=== PATIENT | male | born 1975 | race Caucasian/White ===

== ENCOUNTER → 2018-01-16 | Outpatient (CLI) | payer OTHER ==
[2018-01-16 09:35] LABS: ABSOLUTE BASOPHILS # (AUTO) 0.1 10^3/uL (0.0-0.2); ABSOLUTE EOSINOPHILS # (AUTO) 0.4 10^3/uL (0.0-0.6); ABSOLUTE LYMPHOCYTES (AUTO) 1.8 10^3/uL (0.5-4.7); ABSOLUTE MONOCYTES (AUTO) 0.4 10^3/uL (0.1-1.4); ABSOLUTE NEUT (AUTO) 2.2 10^3/uL (1.7-8.2); BASOPHILS % (AUTO) 2.5 % (0-2); EOSINOPHILS % (AUTO) 8.3 % (0-6); HEMATOCRIT 36.3 % (37.9-51.0); HEMOGLOBIN 11.8 g/dL (13.5-17.0); LYMPHOCYTES % (AUTO) 35.7 % (13-45); MEAN CORPUSCULAR HGB CONC 32.6 g/dL (32.0-36.0); MEAN CORPUSCULAR VOLUME 95 fl (80-97); MONOCYTES % (AUTO) 8.9 % (3-13); PLATELET COUNT 270 10^3/uL (150-450); RED BLOOD COUNT 3.82 10^6/uL (4.35-5.55); RED CELL DISTRIBUTION WIDTH 14.7 % (11.5-14.0); SEGMENTED NEUTROPHILS % (AUTO) 44.6 % (42-78); TOTAL CELLS COUNTED % (AUTO) 100 %; WHITE BLOOD COUNT 4.9 10^3/uL (4.0-10.5)
[2018-01-16 10:01] LABS: ALANINE AMINOTRANSFERASE 30 U/L (21-72); ALBUMIN 3.5 g/dL (3.5-5.0); ALKALINE PHOSPHATASE 114 U/L (38-126); ANION GAP 11 (5-19); ASPARTATE AMINO TRANSFERASE 50 U/L (17-59); BILIRUBIN,DIRECT 0.3 mg/dL (0.0-0.4); BILIRUBIN,TOTAL 0.4 mg/dL (0.2-1.3); BLOOD UREA NITROGEN 6 mg/dL (7-20); CALCIUM 9.4 mg/dL (8.4-10.2); CARBON DIOXIDE 28 mmol/L (22-30); CHLORIDE 104 mmol/L (98-107); GLUCOSE 125 mg/dL (75-110); POTASSIUM 4.2 mmol/L (3.6-5.0); SODIUM 143.1 mmol/L (137-145); TOTAL PROTEIN 7.1 g/dL (6.3-8.2); TRIGLYCERIDES 118 mg/dL (<150)
[2018-01-16 10:12] LABS: DIRECT LDL 104 mg/dL (<100)
== END ==
LOC: OD 08:03
DX: E11.8 Type 2 diabetes mellitus with unspecified complications (principal)
CPT/HCPCS: 36415; 80053; 80061; 83036; 83735; 84443; 85025

== ENCOUNTER → 2018-09-01 | Emergency (ER) | payer BC, OTHER ==
[~2018-09-01] MED LIST: MORPHINE SULFATE 10 MG/ML INJ IV ONE; NORMAL SALINE 1000 ML 1,000 ML IV ONE; ONDANSETRON HCL INJ/PF 4 MG/2 ML SDV IV ONE; POTASSIUM CHLORIDE 10 MEQ CAPSULE.ER PO ONE
[2018-09-01 08:13] LABS: ABSOLUTE BASOPHILS # (AUTO) 0.1 10^3/uL (0.0-0.2); ABSOLUTE EOSINOPHILS # (AUTO) 0.3 10^3/uL (0.0-0.6); ABSOLUTE LYMPHOCYTES (AUTO) 1.8 10^3/uL (0.5-4.7); ABSOLUTE MONOCYTES (AUTO) 0.9 10^3/uL (0.1-1.4); ABSOLUTE NEUT (AUTO) 6.5 10^3/uL (1.7-8.2); BASOPHILS % (AUTO) 0.9 % (0-2); EOSINOPHILS % (AUTO) 3.1 % (0-6); HEMATOCRIT 43.3 % (37.9-51.0); HEMOGLOBIN 14.6 g/dL (13.5-17.0); LYMPHOCYTES % (AUTO) 18.8 % (13-45); MEAN CORPUSCULAR HEMOGLOBIN 30.8 pg (27.0-33.4); MEAN CORPUSCULAR HGB CONC 33.8 g/dL (32.0-36.0); MEAN CORPUSCULAR VOLUME 91 fl (80-97); MONOCYTES % (AUTO) 9.7 % (3-13); PLATELET COUNT 303 10^3/uL (150-450); RED BLOOD COUNT 4.76 10^6/uL (4.35-5.55); RED CELL DISTRIBUTION WIDTH 13.4 % (11.5-14.0); SEGMENTED NEUTROPHILS % (AUTO) 67.5 % (42-78); TOTAL CELLS COUNTED % (AUTO) 100 %; WHITE BLOOD COUNT 9.6 10^3/uL (4.0-10.5)
[2018-09-01 08:26] LABS: APPEARANCE,URINE SLIGHTLY-CLOUDY; BILIRUBIN,URINE NEGATIVE (NEGATIVE); COLOR,URINE DARK YELLOW; GLUCOSE, URINE NEGATIVE (NEGATIVE); KETONES,URINE NEGATIVE (NEGATIVE); LEUKOCYTE ESTERASE,URINE NEGATIVE (NEGATIVE); NITRITE,URINE NEGATIVE (NEGATIVE); PROTEIN,URINE 30 mg/dL (NEGATIVE); URINE SPECIFIC GRAVITY 1.019
[2018-09-01 08:38] LABS: ALANINE AMINOTRANSFERASE 22 U/L (21-72); ALKALINE PHOSPHATASE 120 U/L (38-126); ANION GAP 9 (5-19); ASPARTATE AMINO TRANSFERASE 37 U/L (17-59); BILIRUBIN,DIRECT 0.3 mg/dL (0.0-0.4); BILIRUBIN,TOTAL 1.4 mg/dL (0.2-1.3); BLOOD UREA NITROGEN 9 mg/dL (7-20); CALCIUM 8.6 mg/dL (8.4-10.2); CARBON DIOXIDE 35 mmol/L (22-30); CHLORIDE 81 mmol/L (98-107); GLUCOSE 130 mg/dL (75-110); LIPASE 1335.7 U/L (23-300); POTASSIUM 3.1 mmol/L (3.6-5.0); SODIUM 125.3 mmol/L (137-145); TOTAL PROTEIN 6.4 g/dL (6.3-8.2)
[2018-09-01 09:51] LABS: INTERNATIONAL RATION (INR) 1.08
--- NOTE | 2018-09-01 12:24 | RADIOLOGY REPORT (SQ) ---
EXAM DESCRIPTION: CT ABD/PELVIS WITH IV ORAL COMPLETED DATE/TIME: 09/01/2018 12:10 pm REASON FOR STUDY: abd distension, elevated lipase COMPARISON: None. TECHNIQUE: CT scan of the abdomen and pelvis performed with intravenous and oral contrast using lissa ke scanning technique with dynamic intravenous contrast injection. Images reviewed with lung, soft t issue, and bone windows. Reconstructed coronal and sagittal MPR images reviewed. Delayed images for e valuation of the urinary system also acquired. All images stored on PACS. All CT scanners at this facility use dose modulation, iterative reconstruction, and/or weight based d osing when appropriate to reduce radiation dose to as low as reasonably achievable (ALARA). [facility]: Dose Right [facility]: CareDose [facility]: Dose Right [facility]: Teradose 4D [facility]: [employer] CONTRAST TYPE AND DOSE: contrast/concentration: Isovue 350.00 mg/ml; Total Contrast Delivered: 95.0 ml; Total Saline Delivered: 55.0 ml RENAL FUNCTION: BUN 9 creatinine 0.91. RADIATION DOSE: CT Rad equipment meets quality standard of care and radiation dose reduction techniq ues were employed. CTDIvol: 10.6 - 14.7 mGy. DLP: 1546 mGy-cm.. LIMITATIONS: None. FINDINGS: LOWER CHEST: No significant findings. No nodules or infiltrates. LIVER: Normal size. General decreased attenuation. Possible subtle nodularity of the contour. No m asses. No dilated ducts. SPLEEN: Normal size. No focal lesions. PANCREAS: No masses. No significant calcifications. There several cystic lesions. Cyst in the tail of the pancreas measures 3.0 x 3.9 cm. Cyst in the body of the pancreas measures 2.4 x 2.8 cm. Cyst in the head of the pancreas measures 3.5 x 3.5 cm. Pancreatic duct not dilated. GALLBLADDER: No identified stones by CT criteria. No inflammatory changes to suggest cholecystitis. ADRENAL GLANDS: No significant masses or asymmetry. RIGHT KIDNEY AND URETER: No solid masses. No significant calcification. No hydronephrosis or hydroure ter. LEFT KIDNEY AND URETER: No solid masses. No significant calcification. No hydronephrosis or hydrouret er. AORTA AND VESSELS: No aneurysm. No dissection. Renal arteries, SMA, celiac without stenosis. RETROPERITONEUM: No retroperitoneal adenopathy, hemorrhage or masses. BOWEL AND PERITONEAL CAVITY: No obstruction. No visualized masses. Large amount of free fluid. No i nflammatory changes or thickening of bowel wall. APPENDIX: Normal. PELVIS: No significant masses. Normal bladder. No free fluid. ABDOMINAL WALL: No masses. No hernias. BONES: No significant or acute findings. OTHER: No other significant finding. IMPRESSION: 1. LARGE AMOUNT OF ASCITES. 2. SEVERAL PANCREATIC CYSTS VERSUS PSEUDOCYSTS. 3. FATTY INFILTRATION OF THE LIVER. POSSIBLE SUBTLE NODULARITY OF THE CONTOUR WHICH COULD INDICATE C IRRHOSIS. NO FOCAL HEPATIC LESIONS. 4. NO OTHER SIGNIFICANT OR ACUTE FINDINGS IN THE ABDOMEN OR PELVIS. TECHNICAL DOCUMENTATION: JOB ID: [id number] Quality ID # [id number]: Final reports with documentation of one or more dose reduction techniques (e.g., Au tomated exposure control, adjustment of the mA and/or kV according to patient size, use of iterative reconstruction technique) 2010 [employer]- All Rights Reserved Reading location - IP/workstation name: [email or web address]
--- NOTE | 2018-09-01 13:26 | ER Document Report ---
ED General - General Chief Complaint: Abnormal Lab Results Stated Complaint: STOMACH PROBLEMS Time Seen by Provider: 09/01/18 09:11 Primary Care Provider: HANH MORENO PA-C [Primary Care Provider] - Follow up as needed TRAVEL OUTSIDE OF THE [place] IN LAST 30 DAYS: No - HPI Notes: 42-year-old male to the emergency department with complaints of upper abdominal pain and abdominal bloating and enlargement for the past 2 weeks. [facility] and had labs done. He was called today and told that he had pancreatitis and to proceed to the emergency department. States that he does have a history of excessive alcohol abuse but that he has s ignificantly decreased his habit. States that prior to last fall he was drinking 4-5 beers every single day. States now he only drinks occasionally on the weekends. Does admit that he was drinking yesterday. States that he has not had any appetite and that it hurts when he tries to eat or drink anything. He denies any fevers, chills, chest pain, shortness of breath, headache, decrease in urination, rectal bleeding, hematemesis, yellowing of skin. - Related Data Allergies/Adverse Reactions: No Known Allergies Allergy (Verified 09/01/18 06:02) Past Medical History - General Information source: Patient, Relative - Social History Smoking Status: Current Every Day Smoker Frequency of alcohol use: Social Drug Abuse: None Family History: Reviewed & Not Pertinent Patient has suicidal ideation: No Patient has homicidal ideation: No Neurological Medical History: Reports: Hx Seizures Renal/ Medical History: Denies: Hx Peritoneal Dialysis - Immunizations Hx Diphtheria, Pertussis, Tetanus Vaccination: Yes Physical Exam - Vital signs Vitals: Temp Pulse Resp BP Pulse Ox 97.5 F 93 16 133/95 H 98 09/01/18 06:09 09/01/18 06:09 09/01/18 06:09 09/01/18 06:09 09/01/18 06:09 Interpretation: Normal - General General appearance: Other - Chronically ill-appearing In distress: None - HEENT Head: Normocephalic, Atraumatic Eyes: Normal Pupils: PERRL - Respiratory Respiratory status: No respiratory distress Chest status: Nontender Breath sounds: Normal Chest palpation: Normal - Cardiovascular Rhythm: Regular Heart sounds: Normal auscultation Murmur: No - Abdominal Distension: Distended, Other - Distended abdomen most consistent with ascites. No: Tympanitic Bowel sounds: Normal Tenderness: Tender - Tenderness to palpation over the epigastrium, no rebound, no guarding, no rigidity. No: McBurney's point, Pino's sign, Guarding, Rebound - Back Back: Normal, Nontender - Extremities General upper extremity: Normal inspection, Nontender, Normal color, Normal ROM, Normal temperature General lower extremity: Normal inspection, Nontender, Normal color, Normal ROM, Normal temperature, Normal weight bearing. No: Desmond's sign - Neurological Neuro grossly intact: Yes Cognition: Normal Orientation: AAOx4 [place] Coma Scale Eye Opening: Spontaneous Sherice Coma Scale Verbal: Oriented [place] Coma Scale Motor: Obeys Commands [place] Coma Scale Total: 15 Speech: Normal Motor strength normal: LUE, RUE, LLE, RLE Sensory: Normal - Psychological Associated symptoms: Normal affect, Normal mood - Skin Skin Temperature: Warm Skin Moisture: Dry Skin Color: Normal. negative: Jaundiced Course - Vital Signs Vital signs: Temp Pulse Resp BP Pulse Ox 97.3 F 81 20 111/79 100 09/01/18 12:16 09/01/18 12:16 09/01/18 12:16 09/01/18 12:16 09/01/18 12:16 - Laboratory Result Diagrams: 09/01/18 07:57 09/01/18 07:57 Laboratory results interpreted by me: 09/01/18 09/01/18 09/01/18 07:57 07:57 07:57 Sodium 125.3 L Potassium 3.1 L Chloride 81 L Carbon Dioxide 35 H Glucose 130 H Total Bilirubin 1.4 H Albumin 3.0 L Amylase 531 H Lipase 1335.7 H Urine Protein 30 H Urine Urobilinogen 2.0 H - Transfer of Care Notes: 09/01/[address] reading. Given his pancreatitis, likely pseudocysts, hyponatremia, ascites, Will plan for admission. Discussed this with ER Attending, Dr. Barber. He Agrees with the plan. Discussed patient with Dr. Nagel, hospitalist. There is no GI coverage Dr. Lees feels like patient does not have the appropriate resources for his condition here and suggest transfer for higher level of care. Discussed this with patient and he is amenable to being transferred to [facility] for ad mission. Discussed patient with hospitalist at [facility] Dr. Evelio Esposito. He agrees with the plan for admission and transfer. He is aware that the reason for request for transfer is because there is no GI coverage currently. He is aware of CT finding, lipase level, hyponatremia, hypokalemia, hypochloremia. He is aware of patient's physical exam. He accepts the patient. Impression: pancreatitis, ascites, hyponatremia, hypokalemia, hypochloremia. Plan for transfer to [facility] for high level of care since GI is not currently available here. Discharge - Discharge Clinical Impression: Pancreatitis, Ascites, Alcohol abuse, Hyponatremia, Hypochloremia Disposition: [facility] Referrals: HANH MORENO PA-C [Primary Care Provider] - Follow up as needed
[2018-09-01 18:28] VITALS: BP 116/86
== END | disposition short-term general hospital (02) ==
LOC: ER 05:59
DX: K85.90 Acute pancreatitis without necrosis or infection, unspecified (principal); R18.8 Other ascites; E87.8 Other disorders of electrolyte and fluid balance, not elsewhere classified; E87.1 Hypo-osmolality and hyponatremia; R10.10 Upper abdominal pain, unspecified; F17.200 Nicotine dependence, unspecified, uncomplicated
CPT/HCPCS: 96376; 99285; 96361; 96374; 96375; 36415; 80307; 82150; 83690; 85025; 85610; 85730; 80053; 81001; 74177; J2270; J2405; J7030

== ENCOUNTER → 2019-09-11 | Outpatient (CLI) | payer BC, OTHER ==
--- NOTE | 2019-09-11 15:44 | RADIOLOGY REPORT (SQ) ---
EXAM DESCRIPTION: CT ABD/PELVIS WITH IV ORAL IMAGES COMPLETED DATE/TIME: 09/11/2019 1:18 pm REASON FOR STUDY: GENERALIZED ABD PAIN (R10.84) R10.84 GENERALIZED ABDOMINAL PAIN COMPARISON: CT ABDOMEN PELVIS 09/01/2018 TECHNIQUE: CT scan of the abdomen and pelvis performed using helical scanning technique with dynamic intravenous contrast injection. Patient drank oral contrast. Images reviewed with lung, soft tissue , and bone windows. Reconstructed coronal and sagittal MPR images reviewed. Delayed images for evalua tion of the urinary system also acquired. All images stored on PACS. All CT scanners at this facility use dose modulation, iterative reconstruction, and/or weight based d osing when appropriate to reduce radiation dose to as low as reasonably achievable (ALARA). [facility]: Dose Right [facility]: CareDose [facility]: Dose Right [facility]: Teradose 4D [facility]: [employer] CONTRAST TYPE AND DOSE: contrast/concentration: Isovue 350.00 mmol/ml; Total Contrast Delivered: 88. 0 ml; Total Saline Delivered: 70.0 ml RENAL FUNCTION: Creatinine 1.1 RADIATION DOSE: CT Rad equipment meets quality standard of care and radiation dose reduction techniq ues were employed. CTDIvol: 5.3 - 5.3 mGy. DLP: 573 mGy-cm.. LIMITATIONS: None. FINDINGS: LOWER CHEST: No significant findings. No nodules or infiltrates. LIVER: Normal size. No masses. No dilated ducts. SPLEEN: Normal size. No focal lesions. PANCREAS: Pancreatic head is enlarged and indistinct, with inflammation in the surrounding retroperit rodriguez fat. There is blurring of fat planes between the pancreatic head and duodenum. There are multiple enlarged and nonenlarged lymph nodes in the peripancreatic soft tissues. A 1.6 x 1 cm portacaval space lymph node is present on axial image 24. Multiple other smaller by the 6 mm sh ort axis peripancreatic lymph nodes are seen around the pancreatic head. Pancreatic body and tail are unremarkable. No dilute creation of the pancreatic duct. These above findings could either be due to pancreatitis or tumor. Please note that the 3 cm cyst at the pancreatic head and 3 cm cyst in the pancreatic neck seen on are no longer present. GALLBLADDER: No identified stones by CT criteria. No inflammatory changes to suggest cholecystitis. ADRENAL GLANDS: No significant masses or asymmetry. RIGHT KIDNEY AND URETER: No solid masses. No significant calcifications. No hydronephrosis or hyd roureter. LEFT KIDNEY AND URETER: No solid masses. No significant calcifications. No hydronephrosis or hydr oureter. AORTA AND VESSELS: No aneurysm. No dissection. Renal arteries, SMA, celiac without stenosis. RETROPERITONEUM: No retroperitoneal adenopathy, hemorrhage or masses. BOWEL AND PERITONEAL CAVITY: Patient drank oral contrast. No masses or inflammatory changes. No levar e fluid or peritoneal masses. APPENDIX: Normal. PELVIS: No mass. No free fluid. Normal bladder. ABDOMINAL WALL: No masses. No hernias. BONES: No significant or acute findings. OTHER: No other significant finding. IMPRESSION: Enlarged pancreatic head with surrounding adenopathy. Blurring of fat planes between th e pancreas and duodenum. Findings could represent acute primary pancreatitis, secondary pancreatitis from adjacent duodenum ulcer, or primary pancreatic tumor. TECHNICAL DOCUMENTATION: JOB ID: [id number] Quality ID # [id number]: Final reports with documentation of one or more dose reduction techniques (e.g., Au tomated exposure control, adjustment of the mA and/or kV according to patient size, use of iterative reconstruction technique) 2010 [employer]- All Rights Reserved Reading location - IP/workstation name: [email or web address]
== END ==
LOC: RAD 12:35
PROVIDERS: ATTEND Internal Medicine Gastroenterology
DX: R10.84 Generalized abdominal pain (principal); K86.2 Cyst of pancreas
CPT/HCPCS: 74177; 82565

== ENCOUNTER 2019-10-12 07:00 | Day surgery (SDC) | payer OTHER ==
[2019-10-12] MEDS ORDERED: PROPOFOL INJ 200 MG/20 ML VIAL IV ONE (07:07)
--- NOTE | 2019-10-12 08:02 | Operative Report ---
Operative Report DATE OF SURGERY: 10/12/19 Operative Report: The risks benefits and alternatives of the procedure explained to the patient in detail and informed consent is obtained.A GIF Olympus video scope was inserted into the patient's mouth and hypopharynx, the esophagus is identified intubated and insufflated, the scope was then advanced through the esophagus stomach and duodenum, retroflexion maneuver is done, the esophagus stomach and first and second portions of the duodenum examined PREOPERATIVE DIAGNOSIS: Abnormal CT scan, epigastric pain POSTOPERATIVE DIAGNOSIS: Nodular gastritis status post biopsy. Hiatal hernia. Ampulla is patent and draining bile OPERATION: EGD with biopsy SURGEON: MADHU ANNA ANESTHESIA: LMAC TISSUE REMOVED OR ALTERED: As noted above COMPLICATIONS: None. ESTIMATED BLOOD LOSS: None. INTRAOPERATIVE FINDINGS: As noted above PROCEDURE: Patient tolerated the procedure well. No immediate postprocedure complications are noted. Patient is discharged in good condition. Discharge date 10/12/2019. Discharge diet: Regular. Discharge activity: Regular. 2 to 3-week follow-up to discuss findings. Patient is instructed to call the office or proceed to the emergency room should there be any further problems or questions. Wait on the pathology.
[2019-10-12 08:45] VITALS: BP 129/92
== END 2019-10-12 08:33 | disposition home or self-care (01) ==
LOC: END 07:00
PROVIDERS: ATTEND Internal Medicine Gastroenterology
DX: K44.9 Diaphragmatic hernia without obstruction or gangrene (principal); K29.50 Unspecified chronic gastritis without bleeding; K92.89 Other specified diseases of the digestive system; Z79.899 Other long term (current) drug therapy; F17.210 Nicotine dependence, cigarettes, uncomplicated; I10 Essential (primary) hypertension; Z03.818 Encounter for observation for suspected exposure to other biological agents ruled out
CPT/HCPCS: 43239; 82962; 87635; 88305 ×2; 00731; J2704; C9803; 731

== ENCOUNTER 2019-10-15 01:45 | Observation (INO) | payer OTHER ==
[2019-10-15] MEDS ORDERED: NORMAL SALINE 500 ML IV ONE (02:08)
[2019-10-15] MEDS ORDERED: ONDANSETRON HCL INJ/PF 4 MG/2 ML SDV IV ONE (02:25)
--- NOTE | 2019-10-15 02:28 | ER Document Report ---
ED GI/ - General Chief Complaint: Nausea/Vomiting/Diarrhea Stated Complaint: NAUSEA/VOMITTING/DIARRHEA Time Seen by Provider: 10/15/19 02:06 Notes: Patient is a 43-year-old male that comes emergency department for chief complaint of mid upper abdominal pain along with vomiting and diarrhea. Patient states he had an endoscopy on Tuesday, yesterday (Tuesday) he started having discomfort, today he had about 10+ episodes of diarrhea and multiple episodes of vomiting with significantly worsening pain. He states that he was trying to get to sleep and he did drink 1 beer to do so but this did not help. He denies drinking heavily recently although he states he used to drink more. He denies hematemesis, hematochezia, fever, cough, chest pain, flank pain. Patient states that he had a procedure at [facility] recently where he had "stents put in to help me drain my stomach", he states these were taken out, then he followed up with gastroenterology. He has a history of insulin dependent type II diabetes, hypertension, GERD. He smokes. He denies recreational drugs. TRAVEL OUTSIDE OF THE [place] IN LAST 30 DAYS: No - Related Data Allergies/Adverse Reactions: No Known Allergies Allergy (Verified 10/12/19 07:18) Home Medications: insulin glargine, lisinopril, magnesium oxide, omeprazole, spironolactone Past Medical History - General Information source: Patient - Social History Smoking Status: Current Every Day Smoker Frequency of alcohol use: Social Drug Abuse: None Lives with: Family Family History: Reviewed & Not Pertinent Patient has homicidal ideation: No - Past Medical History Cardiac Medical History: Reports: Hx Hypertension Denies: Hx Coronary Artery Disease, Hx Heart Attack Pulmonary Medical History: Denies: Hx Asthma, Hx Bronchitis, Hx COPD, Hx Pneumonia Neurological Medical History: Denies: Hx Cerebrovascular Accident, Hx Seizures Endocrine Medical History: Reports: Hx Diabetes Mellitus Type 1 Renal/ Medical History: Denies: Hx Peritoneal Dialysis Musculoskeletal Medical History: Denies Hx Arthritis - Immunizations Hx Diphtheria, Pertussis, Tetanus Vaccination: Yes Review of Systems - Review of Systems Constitutional: No symptoms reported EENT: No symptoms reported Cardiovascular: No symptoms reported Respiratory: No symptoms reported Gastrointestinal: See HPI Genitourinary: No symptoms reported Male Genitourinary: No symptoms reported Musculoskeletal: No symptoms reported Skin: No symptoms reported Hematologic/Lymphatic: No symptoms reported Neurological/Psychological: No symptoms reported Physical Exam - Vital signs Vitals: Temp Pulse Resp BP Pulse Ox 99 F 120 H 20 137/91 H 96 10/15/19 01:56 10/15/19 01:56 10/15/19 01:56 10/15/19 01:56 10/15/19 01:56 - Notes Notes: GENERAL: Alert, cooperative, appears uncomfortable but not in severe distress HEAD: Normocephalic, atraumatic. EYES: Pupils equal, round, and reactive to light. Extraocular movements intact. ENT: Oral mucosa moist, tongue midline. Oropharynx unremarkable. Airway patent. NECK: Full range of motion. Supple. Trachea midline. No lymphadenopathy. LUNGS: Clear to auscultation bilaterally, no wheezes, rales, or rhonchi. No respiratory distress. Non-tender chest wall. HEART: Tachycardia, normal rhythm, no murmur ABDOMEN: Mid to upper abdominal tenderness especially in the epigastric area with wincing. Lower abdomen is benign. Bowel sounds present throughout. No rigidity or no distention. GENITOURINARY: Deferred EXTREMITIES: Moves all 4 extremities spontaneously. No edema, normal radial and dorsalis pedis pulses bilaterally. No cyanosis. BACK: no cervical, thoracic, lumbar midline tenderness. No saddle anesthesia, normal distal neurovascular exam. Moves all extremities in full range of motion. NEUROLOGICAL: Alert and oriented x3. Normal speech. Cranial nerves II through XII grossly intact. Strength 5/5 in all extremities. PSYCH: Normal affect, normal mood. SKIN: Warm, dry, normal turgor. No rashes or lesions noted. Course - Re-evaluation Re-evalutation: Patient initially tachycardic and somewhat uncomfortable in appearance. He has a lot of mid to upper abdominal tenderness on exam. CBC shows mild leukocytosis at 14,000 with elevation of neutrophils but no bandemia. Otherwise unremarkable. Chemistry nonspecific lipase elevated at 1557. Stool was obtained, white blood cells negative, C. difficile pending. Alcohol is negative. Patient is much more comfortable after IV fluids, nausea medication, pain medication. Patient with a previously complicated appearing CAT scan with inflammation, cyst, possible pancreatic mass. As result this will be repeated. CT of the abdomen pelvis with IV contrast shows acute pancreatitis with inflammation of essentially the entire pancreas but no cyst or mass is seen, no concerning findings otherwise. Patient states he feels better and he wants to try p.o. trial and is hoping he can be discharged with p.o. medications. 10/15/19 06:45 Unfortunately patient vomited after p.o. trial. When I tried to reevaluate him he was in the bathroom vomiting and was still dry heaving. I discussed with him after he returned to the room, will discuss for admission for acute pancreatitis, vomiting, unable to tolerate p.o. Patient states understanding and agreement. 10/15/19 07:[address] Philippe, hospitalist, patient accepted to medical floor observation. - Vital Signs Vital signs: Temp Pulse Resp BP Pulse Ox 98.5 F 82 16 113/68 100 10/15/19 05:33 10/15/19 05:33 10/15/19 05:33 10/15/19 05:33 10/15/19 05:33 - Laboratory Result Diagrams: 10/15/19 02:17 10/15/19 02:17 Laboratory results interpreted by me: 10/15/19 10/15/19 10/15/19 02:17 02:17 06:30 WBC 14.9 H Absolute Neuts (auto) 11.6 H Sodium 134.9 L Chloride 93 L Glucose 164 H Total Bilirubin 1.4 H AST 106 H Alkaline Phosphatase 162 H Lipase 1557.2 H Urine Ketones 20 H Discharge - Discharge Clinical Impression: Dehydration Acute pancreatitis Qualifiers: Pancreatitis type: unspecified pancreatitis type Acute pancreatitis complication: no infection or necrosis Qualified Code(s): K85.90 - Acute pancreatitis without necrosis or infection, unspecified Vomiting Qualifiers: Vomiting type: unspecified Vomiting Intractability: intractable Nausea presence: with nausea Qualified Code(s): R11.2 - Nausea with vomiting, unspecified Condition: Stable Disposition: ADMITTED OBSERVATION Admitting Provider: Denae (Hospitalist) Unit Admitted: Medical Floor
[2019-10-15 02:58] LABS: ABSOLUTE BASOPHILS # (AUTO) 0.1 10^3/uL (0.0-0.2); ABSOLUTE EOSINOPHILS # (AUTO) 0.1 10^3/uL (0.0-0.6); ABSOLUTE LYMPHOCYTES (AUTO) 2.3 10^3/uL (0.5-4.7); ABSOLUTE MONOCYTES (AUTO) 0.8 10^3/uL (0.1-1.4); ABSOLUTE NEUT (AUTO) 11.6 10^3/uL (1.7-8.2); BASOPHILS % (AUTO) 0.5 % (0-2); EOSINOPHILS % (AUTO) 0.4 % (0-6); HEMATOCRIT 44.7 % (37.9-51.0); HEMOGLOBIN 15.3 g/dL (13.5-17.0); LYMPHOCYTES % (AUTO) 15.5 % (13-45); MEAN CORPUSCULAR HEMOGLOBIN 32.2 pg (27.0-33.4); MEAN CORPUSCULAR HGB CONC 34.2 g/dL (32.0-36.0); MEAN CORPUSCULAR VOLUME 94 fl (80-97); MONOCYTES % (AUTO) 5.6 % (3-13); PLATELET COUNT 263 10^3/uL (150-450); RED BLOOD COUNT 4.75 10^6/uL (4.35-5.55); RED CELL DISTRIBUTION WIDTH 12.1 % (11.5-14.0); TOTAL CELLS COUNTED % (AUTO) 100 %; WHITE BLOOD COUNT 14.9 10^3/uL (4.0-10.5)
[2019-10-15] MEDS ORDERED: MORPHINE SULFATE 10 MG/ML INJ IV ONE (03:12)
[2019-10-15 03:18] LABS: ALBUMIN 4.5 g/dL (3.5-5.0); ALKALINE PHOSPHATASE 162 U/L (38-126); ANION GAP 12 (5-19); ASPARTATE AMINO TRANSFERASE 106 U/L (17-59); BILIRUBIN,DIRECT 0.1 mg/dL (0.0-0.4); BILIRUBIN,TOTAL 1.4 mg/dL (0.2-1.3); BLOOD UREA NITROGEN 12 mg/dL (7-20); CALCIUM 9.4 mg/dL (8.4-10.2); CARBON DIOXIDE 30 mmol/L (22-30); CHLORIDE 93 mmol/L (98-107); GLUCOSE 164 mg/dL (75-110); POTASSIUM 4.1 mmol/L (3.6-5.0); TOTAL PROTEIN 8.2 g/dL (6.3-8.2)
[2019-10-15] MEDS ORDERED: HYDROMORPHONE HCL INJ/PF 2 MG/ML AMPULE IV ONE ×2 (04:12→07:00)
--- NOTE | 2019-10-15 05:01 | RADIOLOGY REPORT (SQ) ---
CLINICAL HISTORY: s/p endoscopy, abd pain, vomiting, elevated lipase COMPARISON: 09/11/2019. TECHNIQUE: CT ABDOMEN PELVIS WITH IV CONTRAST on 10/15/2019 3:36 AM CDT This exam was performed according to our departmental dose-optimization program, which includes automated exposure control, adjustment of the mA and/or kV according to patient size and/or use of iterative reconstruction technique. FINDINGS: Lower lungs are clear. Abdomen: Liver is fatty in attenuation. There is no biliary dilatation. Gallbladder is normal in appearance. Spleen is normal in size. There is moderate inflammation surrounding essentially the entire pancreas. The pancreas enhances homogeneously. The adrenal glands and kidneys are unremarkable. Abdominal aorta is normal in course and caliber without aneurysm. There is no free air. There is no retroperitoneal adenopathy. Pelvis: There is no bowel obstruction. Urinary bladder is unremarkable. There is no free fluid. Appendix is normal. Skeleton: There are no acute osseous findings. No suspicious bony lesions. IMPRESSION: Continued pancreatitis without pancreatic necrosis.
[2019-10-15] MEDS ORDERED: NORMAL SALINE 1000 ML 1,000 ML IV ONE (05:15)
[2019-10-15 07:11] LABS: APPEARANCE,URINE CLEAR; BILIRUBIN,URINE NEGATIVE (NEGATIVE); COLOR,URINE YELLOW; GLUCOSE, URINE NEGATIVE (NEGATIVE); KETONES,URINE 20 mg/dL (NEGATIVE); LEUKOCYTE ESTERASE,URINE NEGATIVE (NEGATIVE); NITRITE,URINE NEGATIVE (NEGATIVE); PROTEIN,URINE NEGATIVE (NEGATIVE); UROBILINOGEN,URINE NEGATIVE mg/dL (<2.0)
[2019-10-15 07:19] LABS: URINE SPECIFIC GRAVITY > 1.060
[2019-10-15] MEDS ORDERED: PROMETHAZINE HCL INJ 25 MG/1 ML VIAL IV PRN (09:46)
[2019-10-15] MEDS ORDERED: ONDANSETRON HCL INJ/PF 4 MG/2 ML SDV IV PRN (09:46)
[2019-10-15] MEDS ORDERED: MAG HYDROX/AL HYDROX/SIMETH SUSP 30 ML UDCUP PO PRN (09:46)
[2019-10-15] MEDS ORDERED: MORPHINE SULFATE 10 MG/ML INJ IV PRN (09:50)
[2019-10-15 09:52] LABS: C DIFFICILE GDH POSITIVE (NEGATIVE)
[2019-10-15] MEDS ORDERED: ACETAMINOPHEN 325 MG TABLET PO PRN (09:53)
[2019-10-15] MEDS ORDERED: GLUCAGON,HUMAN RECOMB 1 MG INJ IM PRN (09:58)
[2019-10-15] MEDS ORDERED: DEXTROSE 50%-WATER 25 GM/50 ML DISP.SYRIN IV PRN ×2 (09:58)
[2019-10-15] MEDS ORDERED: DEXTROSE 40% GEL 15 GM TUBE PO PRN ×2 (09:58)
[2019-10-15] MEDS ORDERED: NICOTINE 14 MG/24 HR PATCH.TD24 TD PRN (10:02)
--- NOTE | 2019-10-15 10:07 | PDOC H&P ---
History of Present Illness Admission Date/PCP: 10/15/19 08:15 Patient complains of: Epigastric pain History of Present Illness: FELIX HEATH is a 43 year old male with a history of acid reflux, pancreatitis suspected secondary to alcoholism, recent EGD, who presents to the hospital with complaint of epigastric pain which started 2 days ago. Patient states that he recently had EGD done as outpatient by Dr. Jane 3 days ago. Patient has began having his epigastric pain the subsequent day. The pain has progressed and now on 10/14. He describes it as a stabbing type pain with radiation to the periumbilical region without noted aggravating or alleviating factors. Associated with nausea and vomiting and several episodes of dry heaves. He has also had several bouts of diarrhea yesterday. Denies any hematemesis or maroon stools/hematochezia. States that the pain feels somewhat similar to his prior episodes of pancreatitis. He has cut down on his drinking and he only drinks about once a week now. Had negative COVID-19 test 1 week ago. Past Medical History Cardiac Medical History: Reports: Hypertension Denies: Coronary Artery Disease, Myocardial Infarction Pulmonary Medical History: Denies: Asthma, Bronchitis, Chronic Obstructive Pulmonary Disease (COPD), Pneumonia Neurological Medical History: Denies: Seizures Endocrine Medical History: Reports: Diabetes Mellitus Type 1 Musculoskeltal Medical History: Denies: Arthritis Hematology: Denies: Anemia Past Surgical History Past Surgical History: Reports: Other - Only reports endoscopies and history of pancreatic stenting which was remov Social History Lives with: Family Smoking Status: Current Every Day Smoker Frequency of Alcohol Use: Occasional Hx Recreational Drug Use: No - Advance Directive Resuscitation Status: Full Code Family History Family History: DM Parental Family History Reviewed: Yes Children Family History Reviewed: NA Sibling(s) Family History Reviewed.: Yes Medication/Allergy Home Medications: Insulin Glargine,Hum.rec.anlog [Lantus (Pyxis) Insulin 100 Unit/1 ml 10 ml] 8 unit SUBCUT DAILY 10/12/19 Lisinopril [Zestril] 10 mg PO DAILY 10/12/19 Magnesium Oxide 400 mg PO DAILY 10/12/19 Multivitamin 1 each PO DAILY 10/12/19 Omeprazole 20 mg PO BID 10/12/19 Spironolactone [Aldactone 25 mg Tablet] 25 mg PO DAILY 10/12/19 Allergies/Adverse Reactions: No Known Allergies Allergy (Verified 10/12/19 07:18) Review of Systems Constitutional: ABSENT: chills, fever(s) Eyes: ABSENT: visual disturbances Nose, Mouth, and Throat: ABSENT: headache(s) Cardiovascular: ABSENT: chest pain Respiratory: ABSENT: cough, dyspnea Gastrointestinal: PRESENT: abdominal pain, diarrhea, nausea, vomiting. ABSENT: hematemesis, hematochezia, melena Genitourinary: ABSENT: difficulty urinating Musculoskeletal: ABSENT: muscle weakness Integumentary: ABSENT: as per HPI Neurological: PRESENT: dizziness - Occasionally but not currently Psychiatric: ABSENT: anxiety Hematologic/Lymphatic: ABSENT: easy bleeding Physical Exam Vital Signs: Temp Pulse Resp BP Pulse Ox 98.5 F 82 16 113/68 100 10/15/19 05:33 10/15/19 05:33 10/15/19 05:33 10/15/19 05:33 10/15/19 05:33 Intake & Output 10/14/19 10/15/19 10/16/19 06:59 06:59 06:59 Intake Total 500 1000 Balance 500 1000 Weight 74.843 kg General appearance: PRESENT: no acute distress, cooperative Head exam: PRESENT: normocephalic Eye exam: PRESENT: EOMI Neck exam: ABSENT: JVD Respiratory exam: PRESENT: clear to auscultation [place], symmetrical, unlabored. ABSENT: tachypnea, wheezes Cardiovascular exam: PRESENT: RRR, +S1, +S2. ABSENT: tachycardia GI/Abdominal exam: PRESENT: hyperactive bowel sounds, soft, tenderness - Mild on deep palpation epigastrium mostly. ABSENT: distended, firm, guarding, rebound, rigid Extremities exam: ABSENT: calf tenderness, pedal edema Neurological exam: PRESENT: alert, awake Psychiatric exam: ABSENT: agitated, anxious Focused psych exam: ABSENT: pressured speech Skin exam: ABSENT: jaundice Results Laboratory Results: 10/15/19 02:17 10/15/19 02:17 10/15/19 10/15/19 10/15/19 02:17 02:17 03:05 WBC 14.9 H RBC 4.75 Hgb 15.3 Hct 44.7 MCV 94 MCH 32.2 MCHC 34.2 RDW 12.1 Plt Count 263 Seg Neutrophils % 78.0 Sodium 134.9 L Potassium 4.1 Chloride 93 L Carbon Dioxide 30 Anion Gap 12 BUN 12 Creatinine 0.88 Est GFR ( Amer) > 60 Glucose 164 H Calcium 9.4 Total Bilirubin 1.4 H AST 106 H Alkaline Phosphatase 162 H Total Protein 8.2 Albumin 4.5 Lipase 1557.2 H Urine Color Urine Appearance Urine pH Ur Specific [place] Urine Protein Urine Glucose (UA) Urine Ketones Urine Blood Urine Nitrite Ur Leukocyte Esterase Urine WBC (Auto) Urine RBC (Auto) Stool for White Cells NO WBCs SEEN 10/15/19 06:30 WBC RBC Hgb Hct MCV MCH MCHC RDW Plt Count Seg Neutrophils % Sodium Potassium Chloride Carbon Dioxide Anion Gap BUN Creatinine Est GFR ( Amer) Glucose Calcium Total Bilirubin AST Alkaline Phosphatase Total Protein Albumin Lipase Urine Color YELLOW Urine Appearance CLEAR Urine pH 7.0 Ur Specific [place] > 1.060 Urine Protein NEGATIVE Urine Glucose (UA) NEGATIVE Urine Ketones 20 H Urine Blood NEGATIVE Urine Nitrite NEGATIVE Ur Leukocyte Esterase NEGATIVE Urine WBC (Auto) 0 Urine RBC (Auto) 0 Stool for White Cells Impressions: Abdomen/Pelvis CT 10/15/19 03:36 IMPRESSION: Continued pancreatitis without pancreatic necrosis. Assessment and Plan - Diagnosis (1) Abdominal pain Qualifiers: Abdominal location: epigastric Qualified Code(s): R10.13 - Epigastric pain Is this a current diagnosis for this admission?: Yes Plan: Presented with abdominal pain, nausea/vomiting and some bouts of diarrhea. Likely etiologies include acute pancreatitis and/or gastritis. Monitor CMP Treatment as below. Pain control and antiemetics. (2) Acute recurrent pancreatitis Is this a current diagnosis for this admission?: Yes Plan: Has history of pancreatitis thought to be secondary to alcohol abuse. He has since cut down on his alcohol consumption. CT abdomen showing pancreatitis and lipase elevated. He did have recent upper endoscopy about a few days ago but does not seem that an ERCP was done at that time hence likely did not provoke pancreatitis. Will treat with IV fluid hydration, Tylenol, IV morphine as needed and antiemetics Put on mechanical soft bland low residue diet and see patient tolerated (3) Gastritis Qualifiers: Gastritis type: other gastritis Chronicity: unspecified Gastritis bleeding: without bleeding Qualified Code(s): K29.60 - Other gastritis without bleeding Is this a current diagnosis for this admission?: Yes Plan: Noted on EGD a few days ago. Biopsy was taken given demonstration of nodular gastritis. I think his gastritis is likely strongly contributing to his epigastric pain. Protonix Start Carafate (4) Diabetes mellitus type 2 in nonobese Is this a current diagnosis for this admission?: Yes Plan: Continue Lantus 10 units daily. Accu-Cheks. Hypoglycemic protocol. (5) Tobacco abuse Is this a current diagnosis for this admission?: Yes Plan: Counseled on cessation. NicoDerm patch will be offered. - Time Time Spent with patient: 35 or more minutes Anticipated Discharge Disposition: Home, Self Care Anticipated Discharge Timeframe: within 36 hours
[2019-10-15] MEDS: PANTOPRAZOLE SODIUM 40 MG TABLET.DR PO SCH (10:40)
[2019-10-15] MEDS: ENOXAPARIN SODIUM INJ 40 MG/0.4 ML DISP.SYRIN SUBCUT SCH (10:40)
[2019-10-15] MEDS: INSULIN LISPRO 100 UNIT/ML 3 ML VIAL SUBCUT SCH ×3 (11:11→22:51)
[2019-10-15] MEDS: SUCRALFATE 1 GM TABLET PO SCH ×3 (11:11→22:50)
[2019-10-15] MEDS: SPIRONOLACTONE 25 MG TABLET PO SCH (11:13)
[2019-10-15] MEDS: NORMAL SALINE 1000 ML 1,000 ML IV PRN ×2 (11:13→19:10)
[2019-10-15] MEDS: LISINOPRIL 10 MG TABLET PO SCH (11:19)
[2019-10-15] MEDS: INSULIN GLARGINE,HUM.REC.ANLOG 1,000 UNIT/10 ML VIAL SUBCUT SCH (11:19)
--- NOTE | 2019-10-15 12:17 | RADIOLOGY REPORT (SQ) ---
EXAM DESCRIPTION: U/S ABDOMEN LIMITED W/O DOP IMAGES COMPLETED DATE/TIME: 10/15/2019 10:41 am REASON FOR STUDY: pancreatitis. biliary tree evaluation COMPARISON: None. TECHNIQUE: Dynamic and static grayscale images acquired of the abdomen and recorded on PACS. Additio nal selected color Doppler and spectral images recorded. LIMITATIONS: None. FINDINGS: PANCREAS: Obscured by bowel gas. LIVER: No masses. Echotexture normal. LIVER VASCULATURE: Normal directional flow of the main portal vein and hepatic veins. GALLBLADDER: There appears to be some sludge in the gallbladder. No wall thickening. ULTRASOUND-DETECTED BENITES'S SIGN: Negative. INTRAHEPATIC DUCTS AND COMMON DUCT: Common bile duct is at the upper limit of normal at 6 mm. No int rahepatic ductal dilatation. AORTA: No aneurysm. RIGHT KIDNEY: Normal size, 11 cm. Normal echogenicity. No solid or suspicious masses. No hydronephro sis. No calcifications. PERITONEAL AND RIGHT PLEURAL SPACE: No ascites or effusions. OTHER: None IMPRESSION: There appears to be some sludge in the gallbladder. The common bile duct is at the uppe r limit of normal. There is no intrahepatic ductal dilatation. TECHNICAL DOCUMENTATION: JOB ID: [id number] 2010 [employer]- All Rights Reserved Reading location - IP/workstation name: [email or web address]
[2019-10-15] MEDS: VANCOMYCIN HCL INJ 500 MG VIAL PO SCH (19:42)
[2019-10-16] MEDS: VANCOMYCIN HCL INJ 500 MG VIAL PO SCH ×3 (00:09→13:15)
[2019-10-16] MEDS: NORMAL SALINE 1000 ML 1,000 ML IV PRN (01:46)
[2019-10-16] MEDS: PANTOPRAZOLE SODIUM 40 MG TABLET.DR PO SCH (06:15)
[2019-10-16 07:41] LABS: ALBUMIN 3.1 g/dL (3.5-5.0); ALKALINE PHOSPHATASE 106 U/L (38-126); ANION GAP 6 (5-19); ASPARTATE AMINO TRANSFERASE 41 U/L (17-59); BILIRUBIN,TOTAL 1.4 mg/dL (0.2-1.3); BLOOD UREA NITROGEN 5 mg/dL (7-20); CARBON DIOXIDE 28 mmol/L (22-30); CHLORIDE 98 mmol/L (98-107); GLUCOSE 122 mg/dL (75-110); POTASSIUM 3.8 mmol/L (3.6-5.0); TOTAL PROTEIN 6.2 g/dL (6.3-8.2)
[2019-10-16] MEDS: INSULIN LISPRO 100 UNIT/ML 3 ML VIAL SUBCUT SCH ×2 (10:22→13:14)
[2019-10-16] MEDS ORDERED: INSULIN GLARGINE,HUM.REC.ANLOG 1,000 UNIT/10 ML VIAL (PYX) SUBCUT ONE ×2 (10:31→11:00)
[2019-10-16] MEDS: SPIRONOLACTONE 25 MG TABLET PO SCH (10:34)
[2019-10-16] MEDS: LISINOPRIL 10 MG TABLET PO SCH (10:34)
[2019-10-16] MEDS: INSULIN GLARGINE,HUM.REC.ANLOG 1,000 UNIT/10 ML VIAL SUBCUT SCH (10:34)
[2019-10-16] MEDS: SUCRALFATE 1 GM TABLET PO SCH ×3 (10:34→16:18)
[2019-10-16] MEDS: ENOXAPARIN SODIUM INJ 40 MG/0.4 ML DISP.SYRIN SUBCUT SCH (10:36)
[2019-10-16] MEDS: MAGNESIUM SULFATE/D5W 1 GM/100 ML RTUPB IV SCH ×2 (10:36→13:13)
--- NOTE | 2019-10-16 12:14 | PDOC DISCHARGE SUMMARY ---
Impression - Admit/DC Date/PCP Admission Date/Primary Care Provider: 10/15/19 08:15 Discharge Date: 10/16/19 - Discharge Diagnosis (1) Abdominal pain Is this a current diagnosis for this admission?: Yes (2) Acute recurrent pancreatitis Is this a current diagnosis for this admission?: Yes (3) C. difficile colitis Is this a current diagnosis for this admission?: Yes (4) Gastritis Is this a current diagnosis for this admission?: Yes (5) Diabetes mellitus type 2 in nonobese Is this a current diagnosis for this admission?: Yes (6) Tobacco abuse Is this a current diagnosis for this admission?: Yes - Additional Information Resuscitation Status: Full Code Discharge Diet: Diabetic Discharge Activity: Activity As Tolerated Referrals: MADHU JANE MD [ACTIVE STAFF] - RICO ALVA MD [ACTIVE STAFF] - 10/18/19 10:00 am Prescriptions: Sucralfate [Carafate 1 gm Tablet] 1 gm PO AC 30 Days #90 tablet Magnesium Oxide 400 mg PO DAILY #20 Vancomycin HCl 125 mg PO Q6 9 Days #36 capsule Home Medications: Insulin Glargine,Hum.rec.anlog [Lantus (Pyxis) Insulin 100 Unit/1 ml 10 ml] 8 unit SUBCUT DAILY 10/12/19 Lisinopril [Zestril] 10 mg PO DAILY 10/12/19 Multivitamin 1 each PO DAILY 10/12/19 Omeprazole 20 mg PO BID 10/12/19 Spironolactone [Aldactone 25 mg Tablet] 25 mg PO DAILY 10/12/19 Magnesium Oxide 400 mg PO DAILY #20 10/16/19 Sucralfate [Carafate 1 gm Tablet] 1 gm PO AC 30 Days #90 tablet 10/16/19 Vancomycin HCl 125 mg PO Q6 9 Days #36 capsule 10/16/19 History of Present Illiness History of Present Illness: FELIX HEATH is a 43 year old male with a history of acid reflux, pancreatitis suspected secondary to alcoholism, recent EGD, who presents to the hospital with complaint of epigastric pain which started 2 days ago. Patient states that he recently had EGD done as outpatient by Dr. Jane 3 days ago. Patient has began having his epigastric pain the subsequent day. The pain has progressed and now on 10/14. He describes it as a stabbing type pain with radiation to the periumbilical region without noted aggravating or alleviating factors. Associated with nausea and vomiting and several episodes of dry heaves. He has also had several bouts of diarrhea yesterday. Denies any hematemesis or maroon stools/hematochezia. States that the pain feels somewhat similar to his prior episodes of pancreatitis. He has cut down on his drinking and he only drinks about once a week now. Had negative COVID-19 test 1 week ago. Hospital Course Hospital Course: Patient was admitted to the hospital for evaluation of abdominal pain. He was hemodynamically stable. Blood work revealed elevation of lipase and CAT scan of his abdomen was performed which showed evidence of pancreatitis. Notably he had also had a recent EGD last week which showed nodular gastritis for which biopsies were taken but results are pending. Patient also complained of diarrhea frequently. His abdominal pain was thought initially to be secondary to acute recurrent pancreatitis and gastritis. He received treatment with IV fluids, pain medication and was also started on Carafate, which patient states has really helped with his abdominal pain. He was also tested for C. difficile which came back positive indicating he does also have C. difficile colitis. He was started on vancomycin 125 mg p.o. every 6 hours and is been given prescri ption to complete 10 days of this therapy. He has been encouraged to stay hydrated as he would likely be you losing electrolytes from frequent diarrhea. Today patient feels very well and is ready for discharge. His abdominal ultrasound did show some evidence of sludge and small amounts in the gallbladder but no evidence of common bile duct dilation to suggest CBD obstruction. Also his bilirubin is only at upper limit of normal 1.4 and is not significantly elevated to suggest obstruction either. Patient will be discharged with omeprazole to be continued as well as new prescription for Carafate to help tackle his gastritis, has been encouraged to abstain from alcohol consumption to prevent recurrence of his pancreatitis and vancomycin for his C. difficile. He has been set up for a follow-up appointment with a primary care provider Dr. Rico Alva and also will need to follow-up with Dr. Jane to get the results of his biopsy and for further management of his pancreatitis. Physical Exam Vital Signs: Temp Pulse Resp BP Pulse Ox 99.0 F 60 16 129/87 H 99 10/16/19 07:24 10/16/19 07:24 10/16/19 07:24 10/16/19 07:24 10/16/19 07:24 Intake & Output 10/15/19 10/16/19 10/17/19 06:59 06:59 06:59 Intake Total 500 3710 480 Balance 500 3710 480 Weight 74.843 kg 78.8 kg General appearance: PRESENT: no acute distress, cooperative Neck exam: ABSENT: JVD Respiratory exam: PRESENT: unlabored GI/Abdominal exam: PRESENT: soft, tenderness - mild. ABSENT: distended, firm, guarding, rebound, rigid Neurological exam: PRESENT: alert, awake, oriented to person, oriented to place, oriented to time Results Laboratory Results: WBC 14.9 10^3/uL (4.0-10.5) H 10/15/19 02:17 RBC 4.75 10^6/uL (4.35-5.55) 10/15/19 02:17 Hgb 15.3 g/dL (13.5-17.0) 10/15/19 02:17 Hct 44.7 % (37.9-51.0) 10/15/19 02:17 MCV 94 fl (80-97) 10/15/19 02:17 MCH 32.2 pg (27.0-33.4) 10/15/19 02:17 MCHC 34.2 g/dL (32.0-36.0) 10/15/19 02:17 RDW 12.1 % (11.5-14.0) 10/15/19 02:17 Plt Count 263 10^3/uL (150-450) 10/15/19 02:17 Lymph % (Auto) 15.5 % (13-45) 10/15/19 02:17 [place] % (Auto) 5.6 % (3-13) 10/15/19 02:17 Eos % (Auto) 0.4 % (0-6) 10/15/19 02:17 Baso % (Auto) 0.5 % (0-2) 10/15/19 02:17 Absolute Neuts (auto) 11.6 10^3/uL (1.7-8.2) H 10/15/19 02:17 Absolute Lymphs (auto) 2.3 10^3/uL (0.5-4.7) 10/15/19 02:17 Absolute Monos (auto) 0.8 10^3/uL (0.1-1.4) 10/15/19 02:17 Absolute Eos (auto) 0.1 10^3/uL (0.0-0.6) 10/15/19 02:17 Absolute Basos (auto) 0.1 10^3/uL (0.0-0.2) 10/15/19 02:17 Seg Neutrophils % 78.0 % (42-78) 10/15/19 02:17 Sodium 131.9 mmol/L (137-145) L 10/16/19 06:55 Potassium 3.8 mmol/L (3.6-5.0) 10/16/19 06:55 Chloride 98 mmol/L (98-107) 10/16/19 06:55 Carbon Dioxide 28 mmol/L (22-30) 10/16/19 06:55 Anion Gap 6 (5-19) 10/16/19 06:55 BUN 5 mg/dL (7-20) L 10/16/19 06:55 Creatinine 0.68 mg/dL (0.52-1.25) 10/16/19 06:55 Est GFR ( Amer) > 60 (>60) 10/16/19 06:55 Est GFR (MDRD) Non-Af > 60 (>60) 10/16/19 06:55 Glucose 122 mg/dL (75-110) H 10/16/19 06:55 POC Glucose 230 mg/dL (70-110) H 10/16/19 11:51 Calcium 8.0 mg/dL (8.4-10.2) L 10/16/19 06:55 Magnesium 1.4 mg/dL (1.6-2.3) L 10/16/19 06:55 Total Bilirubin 1.4 mg/dL (0.2-1.3) H 10/16/19 06:55 Direct Bilirubin 0.0 mg/dL (0.0-0.4) 10/16/19 06:55 Neonat Total Bilirubin Not Reportable 10/16/19 06:55 Neonat Direct Bilirubin Not Reportable 10/16/19 06:55 Neonat Indirect Bili Not Reportable 10/16/19 06:55 AST 41 U/L (17-59) 10/16/19 06:55 ALT 27 U/L (<50) 10/16/19 06:55 Alkaline Phosphatase 106 U/L (38-126) 10/16/19 06:55 Total Protein 6.2 g/dL (6.3-8.2) L 10/16/19 06:55 Albumin 3.1 g/dL (3.5-5.0) L 10/16/19 06:55 Lipase 1557.2 U/L (23-300) H 10/15/19 02:17 Urine Color YELLOW 10/15/19 06:30 Urine Appearance CLEAR 10/15/19 06:30 Urine pH 7.0 (5.0-9.0) 10/15/19 06:30 Ur Specific [place] > 1.060 10/15/19 06:30 Urine Protein NEGATIVE mg/dL (NEGATIVE) 10/15/19 06:30 Urine Glucose (UA) NEGATIVE mg/dL (NEGATIVE) 10/15/19 06:30 Urine Ketones 20 mg/dL (NEGATIVE) H 10/15/19 06:30 Urine Blood NEGATIVE (NEGATIVE) 10/15/19 06:30 Urine Nitrite NEGATIVE (NEGATIVE) 10/15/19 06:30 Urine Bilirubin NEGATIVE (NEGATIVE) 10/15/19 06:30 Urine Urobilinogen NEGATIVE mg/dL (<2.0) 10/15/19 06:30 Ur Leukocyte Esterase NEGATIVE (NEGATIVE) 10/15/19 06:30 Urine WBC (Auto) 0 /HPF 10/15/19 06:30 Urine RBC (Auto) 0 /HPF 10/15/19 06:30 Squamous Epi Cells Auto <1 /HPF 10/15/19 06:30 Urine Mucus (Auto) RARE /LPF 10/15/19 06:30 Urine Ascorbic Acid NEGATIVE (NEGATIVE) 10/15/19 06:30 Stool for White Cells NO WBCs SEEN 10/15/19 03:05 Stl C. Difficile GDH Ag POSITIVE (NEGATIVE) 10/15/19 03:05 Stl C.difficile Tox A&B NEGATIVE (NEGATIVE) 10/15/19 03:05 Stl C.difficile Tox PCR POSITIVE (NEGATIVE) 10/15/19 03:05 Serum Alcohol < 10 mg/dL (NONE DETECTED) 10/15/19 02:17 Impressions: Abdomen Ultrasound 10/15/19 00:00 IMPRESSION: There appears to be some sludge in the gallbladder. The common bile duct is at the upper limit of normal. There is no intrahepatic ductal dilatation. Abdomen/Pelvis CT 10/15/19 03:36 IMPRESSION: Continued pancreatitis without pancreatic necrosis. Plan Time Spent: Less than 30 Minutes Stroke Is this a Stroke Patient?: No Acute Heart Failure - Is this a Heart Failure Patient?: No
[2019-10-16 15:43] VITALS: BP 136/81
[2019-10-17] MEDS ORDERED: INSULIN GLARGINE,HUM.REC.ANLOG 1,000 UNIT/10 ML VIAL SUBCUT SCH (10:00)
== END 2019-10-16 16:15 | disposition home or self-care (01) ==
LOC: ER 01:45 → EH 08:15 → 4S 13:23
PROVIDERS: ADMIT Internal Medicine; ATTEND Internal Medicine
DX: K85.90 Acute pancreatitis without necrosis or infection, unspecified (principal); A04.72 Enterocolitis due to Clostridium difficile, not specified as recurrent; K29.60 Other gastritis without bleeding; R10.13 Epigastric pain; K82.8 Other specified diseases of gallbladder; E11.9 Type 2 diabetes mellitus without complications; F17.200 Nicotine dependence, unspecified, uncomplicated; K21.9 Gastro-esophageal reflux disease without esophagitis; I10 Essential (primary) hypertension; R00.0 Tachycardia, unspecified; E86.0 Dehydration; Z79.4 Long term (current) use of insulin; Z79.899 Other long term (current) drug therapy
CPT/HCPCS: 96376; 99285; 96361; 96374; 96375; 36415 ×2; 87045; 89055; 87205; 82962 ×2; 80307; 83690; 83735; 85025; 80053 ×2; 81001; 87493 ×2; 87324; 87449; 76705; 74177; G0378 ×3; J1815 ×3; J2270; J1650 ×2; J1170; J3475; J3490 ×4; J2405; J3370 ×2; J7030 ×2; J7040

== ENCOUNTER → 2020-02-26 | Outpatient (CLI) | payer OTHER ==
--- NOTE | 2020-02-26 15:02 | RADIOLOGY REPORT (SQ) ---
EXAM DESCRIPTION: L SPINE 2 VIEWS IMAGES COMPLETED DATE/TIME: 02/26/2020 2:49 pm REASON FOR STUDY: (M54.5)LOW BACK PAIN COMPARISON: None. NUMBER OF VIEWS: Two views. TECHNIQUE: AP and lateral radiographic images acquired of the lumbar spine. LIMITATIONS: None. FINDINGS: MINERALIZATION: Normal. SEGMENTATION: Normal. No transitional anatomy. ALIGNMENT: Normal. VERTEBRAE: Maintained height. No fracture or worrisome bone lesion. DISCS: Mild narrowing of the L2-3 and L3-4 disc spaces. Small marginal osteophytes. POSTERIOR ELEMENTS: Pedicles and facets are intact. No pars defect or posterior arch defects. HARDWARE: None in the spine. PARASPINAL SOFT TISSUES: Normal. PELVIS: Intact as visualized. No fractures or worrisome bone lesions. SI joints intact. OTHER: No other significant finding. IMPRESSION: Mild degenerative disc disease and spondylosis. TECHNICAL DOCUMENTATION: JOB ID: [id number] 2010 [employer]- All Rights Reserved Reading location - IP/workstation name: [email or web address]
== END ==
LOC: RAD 14:18
PROVIDERS: ATTEND Internal Medicine
DX: M54.5 Low back pain (principal)
CPT/HCPCS: 72100

== ENCOUNTER 2020-03-01 14:42 | Inpatient (IN) | payer OTHER ==
[2020-03-01] MEDS ORDERED: ONDANSETRON HCL INJ/PF 4 MG/2 ML SDV IM ONE (15:36)
[2020-03-01] MEDS ORDERED: NORMAL SALINE 1000 ML 1,000 ML IV ONE ×3 (15:37→20:18)
--- NOTE | 2020-03-01 15:40 | ER Document Report ---
ED Medical Screen (RME) - General Chief Complaint: Nausea/Vomiting Stated Complaint: VOMITING,ABDOMINAL PAIN Time Seen by Provider: 03/01/20 15:28 Primary Care Provider: CRESENCIO ALVA MD [Primary Care Provider] - Follow up as needed Mode of Arrival: Ambulatory Information source: Patient Notes: 34-year-old male presents to ED for complaint of nausea vomiting abdominal pain. He states he has a history of pancreatitis and is what it feels like now. He states he drank 4 beers last night. He is also insulin-dependent diabetic. He states he has not checked his sugar today he also has elevated blood pressure. We will get Accu-Chek blood work urine give him some Zofran right now we will do some IV fluids and he will be seen by another provider. He states he smokes 3 cigarettes a day and drinks on weekends. I have greeted and performed a rapid initial assessment of this patient. A comprehensive ED assessment and evaluation of the patient, analysis of test results and completion of medical decision making process will be conducted by an additional ED providers. TRAVEL OUTSIDE OF THE [place] IN LAST 30 DAYS: No - Related Data Allergies/Adverse Reactions: No Known Allergies Allergy (Verified 10/15/19 18:06) Past Medical History - Social History Frequency of alcohol use: Social - Past Medical History Cardiac Medical History: Reports: Hx Hypertension Denies: Hx Coronary Artery Disease, Hx Heart Attack Pulmonary Medical History: Denies: Hx Asthma, Hx Bronchitis, Hx COPD, Hx Pneumonia Neurological Medical History: Denies: Hx Cerebrovascular Accident, Hx Seizures Endocrine Medical History: Reports: Hx Diabetes Mellitus Type 1 Renal/ Medical History: Denies: Hx Peritoneal Dialysis Musculoskeltal Medical History: Denies Hx Arthritis Psychiatric Medical History: Denies: Hx Depression Past Surgical History: Reports: Other - Only reports endoscopies and history of pancreatic stenting which was remov - Immunizations Hx Diphtheria, Pertussis, Tetanus Vaccination: Yes Physical Exam - Vital signs Vitals: Temp Pulse Resp BP Pulse Ox 97.8 F 100 20 91/63 L 100 03/01/20 15:32 03/01/20 15:32 03/01/20 15:32 03/01/20 15:32 03/01/20 15:32 Course - Vital Signs Vital signs: Temp Pulse Resp BP Pulse Ox 97.8 F 100 20 91/63 L 100 03/01/20 15:32 03/01/20 15:32 03/01/20 15:32 03/01/20 15:32 03/01/20 15:32 Doctor's Discharge - Discharge Referrals: CRESENCIO ALVA MD [Primary Care Provider] - Follow up as needed
[2020-03-01 18:37] LABS: ABSOLUTE BASOPHILS # (AUTO) 0.1 10^3/uL (0.0-0.2); ABSOLUTE LYMPHOCYTES (AUTO) 1.8 10^3/uL (0.5-4.7); ABSOLUTE MONOCYTES (AUTO) 1.2 10^3/uL (0.1-1.4); ABSOLUTE NEUT (AUTO) 13.5 10^3/uL (1.7-8.2); BASOPHILS % (AUTO) 0.4 % (0-2); HEMATOCRIT 39.8 % (37.9-51.0); HEMOGLOBIN 13.6 g/dL (13.5-17.0); LYMPHOCYTES % (AUTO) 10.6 % (13-45); MEAN CORPUSCULAR HGB CONC 34.2 g/dL (32.0-36.0); MEAN CORPUSCULAR VOLUME 94 fl (80-97); PLATELET COUNT 226 10^3/uL (150-450); RED BLOOD COUNT 4.26 10^6/uL (4.35-5.55); RED CELL DISTRIBUTION WIDTH 13.2 % (11.5-14.0); TOTAL CELLS COUNTED % (AUTO) 100 %; WHITE BLOOD COUNT 16.5 10^3/uL (4.0-10.5)
[2020-03-01 18:39] LABS: VENOUS BLOOD BASE EXCESS -2.6 mmol/L; VENOUS BLOOD HCO3 22.4 mmol/L (20-32); VENOUS BLOOD PCO2 39.6 mmHg (35-63); VENOUS BLOOD PH 7.37 (7.30-7.42)
[2020-03-01 18:56] LABS: ALBUMIN 4.4 g/dL (3.5-5.0); ALKALINE PHOSPHATASE 141 U/L (38-126); AMYLASE 305 U/L (30-110); ANION GAP 16 (5-19); ASPARTATE AMINO TRANSFERASE 41 U/L (17-59); BILIRUBIN,DIRECT 0.2 mg/dL (0.0-0.4); BILIRUBIN,TOTAL 0.9 mg/dL (0.2-1.3); BLOOD UREA NITROGEN 15 mg/dL (7-20); CALCIUM 9.3 mg/dL (8.4-10.2); CARBON DIOXIDE 24 mmol/L (22-30); CHLORIDE 95 mmol/L (98-107); GLUCOSE 345 mg/dL (75-110); POTASSIUM 3.9 mmol/L (3.6-5.0)
[2020-03-01] MEDS ORDERED: ONDANSETRON HCL INJ/PF 4 MG/2 ML SDV IV ONE (20:17)
--- NOTE | 2020-03-01 20:17 | ER Document Report ---
ED GI/ - General Chief Complaint: Nausea/Vomiting Stated Complaint: VOMITING,ABDOMINAL PAIN Time Seen by Provider: 03/01/20 15:28 Primary Care Provider: CRESENCIO ALVA MD [Primary Care Provider] - Follow up as needed Mode of Arrival: Ambulatory Notes: Patient is a 44-year-old male who presents to the emergency department with a chief complaint of nausea, vomiting, and abdominal pain that started this morning. States the pain is in his mid upper abdomen. States it feels just like when he had pancreatitis in the past. Patient states that he drinks 1-2 beers regularly every day, but yesterday, which was Angie he "overdid it." He states that he drank more than 4 beers that were reported in triage. Patient has a history of pancreatitis. He was actually admitted back in October for pancreatitis. Past medical history includes diabetes and hypertension. TRAVEL OUTSIDE OF THE [place] IN LAST 30 DAYS: No - Related Data Allergies/Adverse Reactions: No Known Allergies Allergy (Verified 10/15/19 18:06) Past Medical History - General Information source: Patient - Social History Smoking Status: Current Every Day Smoker Frequency of alcohol use: Social Family History: DM - Past Medical History Cardiac Medical History: Reports: Hx Hypertension Denies: Hx Coronary Artery Disease, Hx Heart Attack Pulmonary Medical History: Denies: Hx Asthma, Hx Bronchitis, Hx COPD, Hx Pneumonia Neurological Medical History: Denies: Hx Cerebrovascular Accident, Hx Seizures Endocrine Medical History: Reports: Hx Diabetes Mellitus Type 1 Renal/ Medical History: Denies: Hx Peritoneal Dialysis Musculoskeletal Medical History: Denies Hx Arthritis Psychiatric Medical History: Denies: Hx Depression Past Surgical History: Reports: Other - Only reports endoscopies and history of pancreatic stenting which was remov - Immunizations Hx Diphtheria, Pertussis, Tetanus Vaccination: Yes Review of Systems - Review of Systems Notes: REVIEW OF SYSTEMS: CONSTITUTIONAL : Denies recent illness. Denies recent unintentional weight loss. Denies fever, chills, or sweats. EENT: Denies eye, ear, throat, or mouth pain, discharge, or symptoms. Denies nasal or sinus congestion. CARDIOVASCULAR: Denies chest pain. RESPIRATORY: Denies shortness of breath, cough, congestion, difficulty breathing, or wheezing. GASTROINTESTINAL: See HPI. GENITOURINARY: Denies difficulty urinating, burning, blood in urine, urgency or frequency. MUSCULOSKELETAL: Denies neck and back pain. Denies joint pain or swelling. SKIN: Denies rash, itchiness, or lesions HEMATOLOGIC : Denies easy bruising or bleeding. LYMPHATIC: Denies swollen, painful, enlarged glands. NEUROLOGICAL: Denies no numbness or tingling denies weakness. Denies headache. Denies altered mental status. Denies alteration in speech. PSYCHIATRIC: Denies stress, anxiety, alteration in sleep patterns, or depression. All other systems reviewed and negative. Physical Exam - Vital signs Vitals: Temp Pulse Resp BP Pulse Ox 97.8 F 100 20 91/63 L 100 03/01/20 15:32 03/01/20 15:32 03/01/20 15:32 03/01/20 15:32 03/01/20 15:32 - Notes Notes: PHYSICAL EXAMINATION: GENERAL: Appears well, healthy, well-nourished, no acute distress. HEAD: Normocephalic, atraumatic. EYES: PERRL, conjunctiva normal, all extraocular movements intact, sclera nonicteric ENT: Moist mucous membranes. NECK: Supple, no noticeable swelling, redness, rash. Normal range of motion. LUNGS: Equal breath sounds bilaterally and clear to auscultation. No wheezes rales or rhonchi. CARDIOVASCULAR: S1-S2, regular rate, regular rhythm. Radial pulses 2+, normal. ABDOMEN: Normoactive bowel sounds. Soft, tender mid upper abdomen. No masses palpated. EXTREMITIES: Normal strength and range of motion, no pitting or edema. No cyanosis. NEUROLOGICAL: Moves all extremities upon command. Strength 5/5 in all extremities. PSYCH: Normal mood, normal affect. SKIN: Warm, dry. No rash, lesions, ulcerations noted. Normal skin turgor. Course - Re-evaluation Re-evalutation: 03/01/20 20:43 Hematology shows a leukocytosis of 16,500 with a left shift. Blood gas is unremarkable. No evidence of diabetic ketoacidosis, but blood sugar is 351. We will give patient IV fluids. Lipase is 2495, consistent with pancreatitis. 03/01/20 20:[address] Dela Cruz, patient will be admitted to the hospitalist service. - Vital Signs Vital signs: Temp Pulse Resp BP Pulse Ox 98.8 F 100 14 149/90 H 98 03/01/20 20:15 03/01/20 15:32 03/01/20 20:03 03/01/20 20:27 03/01/20 20:03 - Laboratory Results Result Diagrams: 03/01/20 18:20 03/01/20 18:20 Laboratory Results Interpreted: 03/01/20 03/01/20 03/01/20 18:20 18:20 18:20 WBC 16.5 H RBC 4.26 L Lymph % (Auto) 10.6 L Absolute Neuts (auto) 13.5 H Seg Neutrophils % 82.0 H Sodium 135.2 L Chloride 95 L Glucose 345 H POC Glucose Lactic Acid 6.2 H Alkaline Phosphatase 141 H Amylase 305 H Lipase 2495.9 H 03/01/20 20:14 WBC RBC Lymph % (Auto) Absolute Neuts (auto) Seg Neutrophils % Sodium Chloride Glucose POC Glucose 351 H Lactic Acid Alkaline Phosphatase Amylase Lipase Critical Laboratory Results Reviewed: No Critical Results - Radiology Results Critical Radiology Results Reviewed: No Critical Results Discharge - Discharge Clinical Impression: Acute pancreatitis Qualifiers: Pancreatitis type: alcohol induced Acute pancreatitis complication: unspecified Qualified Code(s): K85.20 - Alcohol induced acute pancreatitis without necrosis or infection Vomiting Qualifiers: Vomiting type: unspecified Vomiting Intractability: intractable Nausea presence: with nausea Qualified Code(s): R11.2 - Nausea with vomiting, unspecified Condition: Stable Disposition: ADMITTED INPATIENT Unit Admitted: Medical Floor Referrals: CRESENCIO ALVA MD [Primary Care Provider] - Follow up as needed
[2020-03-01] MEDS ORDERED: LABETALOL HCL INJ 20 MG/4 ML DISP.SYRIN IV PRN (21:06)
[2020-03-01] MEDS ORDERED: DIAZEPAM INJ 10 MG/2 ML DISP.SYRIN IV PRN (21:09)
[2020-03-01] MEDS ORDERED: IPRATROPIUM/ALBUTEROL 0.5-2.5 MG/3 ML AMPUL NEB PRN (21:10)
[2020-03-01] MEDS ORDERED: PROMETHAZINE HCL INJ 25 MG/1 ML VIAL IV PRN (21:10)
[2020-03-01] MEDS ORDERED: ONDANSETRON HCL INJ/PF 4 MG/2 ML SDV IV PRN (21:10)
[2020-03-01] MEDS ORDERED: ACETAMINOPHEN 325 MG TABLET PO PRN (21:10)
[2020-03-01] MEDS ORDERED: MAGNESIUM HYDROXIDE SUSP 30 ML UDCUP PO PRN (21:10)
[2020-03-01] MEDS ORDERED: DEXTROSE 40% GEL 15 GM TUBE PO PRN ×2 (21:14)
[2020-03-01] MEDS ORDERED: DEXTROSE 50%-WATER 25 GM/50 ML DISP.SYRIN IV PRN ×2 (21:14)
[2020-03-01] MEDS ORDERED: GLUCAGON,HUMAN RECOMB 1 MG INJ IM PRN (21:14)
[2020-03-01] MEDS: MORPHINE SULFATE 10 MG/ML INJ IV PRN (22:16)
[2020-03-01] MEDS: HEPARIN SOD (PORCINE) 5,000 UNIT/ML 1 ML VIAL SUBCUT SCH (22:20)
[2020-03-01] MEDS: NORMAL SALINE 1000 ML 1,000 ML IV PRN (22:20)
[2020-03-01] MEDS ORDERED: NORMAL SALINE 1000 ML 1,000 ML with POTASSIUM CHLORIDE 20 MEQ, MAGNESIUM SULFATE 8 MEQ,... IV ONE ×5 (22:30)
[2020-03-01 22:54] LABS: APPEARANCE,URINE CLEAR; BILIRUBIN,URINE NEGATIVE (NEGATIVE); COLOR,URINE YELLOW; GLUCOSE, URINE >=500 mg/dL (NEGATIVE); KETONES,URINE 20 mg/dL (NEGATIVE); LEUKOCYTE ESTERASE,URINE NEGATIVE (NEGATIVE); NITRITE,URINE NEGATIVE (NEGATIVE); PROTEIN,URINE 100 mg/dL (NEGATIVE); URINE SPECIFIC GRAVITY 1.037; UROBILINOGEN,URINE NEGATIVE mg/dL (<2.0)
[2020-03-01] MEDS ORDERED: CEFTRIAXONE 1 GM/D5W RTU 1 GM/50 ML RTUPB IV ONE (23:00)
[2020-03-01] MEDS: INSULIN LISPRO 100 UNIT/ML 3 ML VIAL SUBCUT SCH (23:41)
--- NOTE | 2020-03-02 00:27 | PDOC H&P ---
History of Present Illness Admission Date/PCP: 03/01/20 21:16 CRESENCIO ALVA History of Present Illness: FELIX HEATH is a 44 year old male past medical history of EtOH abuse, recurrent alcoholic pancreatitis, type 2 diabetes, hypertension, EtOH abuse presenting to ED complaining of acute onset abdominal pain starting the morning prior to admission. Patient has history of heavy alcohol abuse, drinks daily, stating that he probably overdid it for Angie night the following day st arted having severe epigastric abdominal pain, pain is explained as sharp, radiating to back, 10/10 on severity scale, no alleviating or exacerbating factors identified, associated with nausea, nonbloody nonbilious vomiting denies any chest pain, shortness of breath, fever, chills, constipation, diarrhea or any urinary symptoms. In ED was noted to have a lipase level of 2495 and hospital was consulted for admission. Past Medical History Cardiac Medical History: Reports: Hypertension Denies: Coronary Artery Disease, Myocardial Infarction Pulmonary Medical History: Denies: Asthma, Bronchitis, Chronic Obstructive Pulmonary Disease (COPD), Pneumonia Neurological Medical History: Denies: Seizures Endocrine Medical History: Reports: Diabetes Mellitus Type 1 Musculoskeltal Medical History: Denies: Arthritis Psychiatric Medical History: Denies: Depression Hematology: Denies: Anemia Past Surgical History Past Surgical History: Reports: Other - Only reports endoscopies and history of pancreatic stenting which was remov Social History Smoking Status: Current Every Day Smoker Cigarettes Packs Per Day: 0.3 Number of Years Smokin Frequency of Alcohol Use: Heavy Hx Recreational Drug Use: No Drugs: None Hx Prescription Drug Abuse: No Family History Family History: DM Medication/Allergy Home Medications: Insulin Glargine,Hum.rec.anlog [Lantus (Pyxis) Insulin 100 Unit/1 ml 10 ml] 8 unit SUBCUT DAILY 10/12/19 Lisinopril [Zestril] 10 mg PO DAILY 10/12/19 Multivitamin 1 each PO DAILY 10/12/19 Omeprazole 20 mg PO BID 10/12/19 Spironolactone [Aldactone 25 mg Tablet] 25 mg PO DAILY 10/12/19 Magnesium Oxide 400 mg PO DAILY #20 10/16/19 Sucralfate [Carafate 1 gm Tablet] 1 gm PO AC 30 Days #90 tablet 10/16/19 Vancomycin HCl 125 mg PO Q6 9 Days #36 capsule 10/16/19 Allergies/Adverse Reactions: No Known Allergies Allergy (Verified 10/15/19 18:06) Review of Systems Review of Systems: as per hpi Physical Exam Vital Signs: Temp Pulse Resp BP Pulse Ox 98.8 F 100 17 163/87 H 99 03/01/20 20:15 03/01/20 15:32 03/01/20 21:01 03/01/20 21:01 03/01/20 21:01 Intake & Output 02/29/20 03/01/20 03/02/20 06:59 06:59 06:59 Intake Total 2258 Balance 2258 Weight 74.5 kg General appearance: PRESENT: cooperative, severe distress, other - Appears uncomfortable and seems to be in a lot of pain. Respiratory exam: PRESENT: clear to auscultation braxton, tachypnea. ABSENT: rales, rhonchi, wheezes Cardiovascular exam: PRESENT: RRR, tachycardia. ABSENT: diastolic murmur, rubs, systolic murmur GI/Abdominal exam: PRESENT: distended, guarding, hypoactive bowel sounds. ABSENT: mass, organolmegaly, rebound, tenderness Neurological exam: PRESENT: alert, awake, oriented to person, oriented to place, oriented to time, oriented to situation, CN II-XII grossly intact. ABSENT: motor sensory deficit Results Laboratory Results: 03/01/20 18:20 03/01/20 18:20 03/01/20 03/01/20 03/01/20 18:20 18:20 18:20 WBC 16.5 H RBC 4.26 L Hgb 13.6 Hct 39.8 MCV 94 MCH 32.0 MCHC 34.2 RDW 13.2 Plt Count 226 Seg Neutrophils % 82.0 H VBG pH VBG pCO2 VBG HCO3 VBG Base Excess Sodium 135.2 L Potassium 3.9 Chloride 95 L Carbon Dioxide 24 Anion Gap 16 BUN 15 Creatinine 0.72 Est GFR ( Amer) > 60 Glucose 345 H Lactic Acid 6.2 H Calcium 9.3 Total Bilirubin 0.9 AST 41 Alkaline Phosphatase 141 H Total Protein 8.0 Albumin 4.4 Amylase 305 H Lipase 2495.9 H Urine Color Urine Appearance Urine pH Ur Specific [place] Urine Protein Urine Glucose (UA) Urine Ketones Urine Blood Urine Nitrite Ur Leukocyte Esterase Urine WBC (Auto) Urine RBC (Auto) 03/01/20 03/01/20 18:20 22:22 WBC RBC Hgb Hct MCV MCH MCHC RDW Plt Count Seg Neutrophils % VBG pH 7.37 VBG pCO2 39.6 VBG HCO3 22.4 VBG Base Excess -2.6 Sodium Potassium Chloride Carbon Dioxide Anion Gap BUN Creatinine Est GFR ( Amer) Glucose Lactic Acid Calcium Total Bilirubin AST Alkaline Phosphatase Total Protein Albumin Amylase Lipase Urine Color YELLOW Urine Appearance CLEAR Urine pH 6.0 Ur Specific [place] 1.037 Urine Protein 100 H Urine Glucose (UA) >=500 H Urine Ketones 20 H Urine Blood NEGATIVE Urine Nitrite NEGATIVE Ur Leukocyte Esterase NEGATIVE Urine WBC (Auto) 3 Urine RBC (Auto) 0 Assessment and Plan - Diagnosis (1) Acute recurrent pancreatitis Is this a current diagnosis for this admission?: Yes Plan: History of acute recurrent alcoholic pancreatitis. Endorses continued daily EtOH abuse. Presented with acute onset epigastric abdominal pain. Lipase 2495. Aggressive volume resuscitation guided by volume status, opioid and nonopioid analgesics, antiemetics, CT abdomen, monitor electrolytes and volume status. (2) ETOH abuse Is this a current diagnosis for this admission?: Yes Plan: History of chronic daily EtOH abuse. Last alcohol intake 02/29/2020. Does not appear to be acutely withdrawing. Admit to telemetry, DT precautions, folic acid, thiamine, benzodiazepines. (3) Diabetes mellitus type 2 in nonobese Is this a current diagnosis for this admission?: Yes Plan: History of uncontrolled diabetes. Presenting with hyperglycemia. Diabetic diet, Accu-Chek, hypoglycemia protocol. Basal, prandial and correctional insulin. Diabetic education. (4) Tobacco abuse Is this a current diagnosis for this admission?: Yes Plan: Counseled on quitting. NicoDerm patch will be provided.
[2020-03-02] MEDS ORDERED: NICOTINE 14 MG/24 HR PATCH.TD24 TD PRN (00:35)
[2020-03-02] MEDS: MORPHINE SULFATE 10 MG/ML INJ IV PRN ×2 (00:35→09:45)
[2020-03-02] MEDS: LORAZEPAM INJ 2 MG/1 ML VIAL IV PRN ×2 (01:40→11:46)
[2020-03-02] MEDS: NORMAL SALINE 1000 ML 1,000 ML IV PRN ×3 (03:26→20:21)
[2020-03-02] MEDS: PANTOPRAZOLE SODIUM 40 MG TABLET.DR PO SCH ×2 (06:28→17:33)
[2020-03-02] MEDS: HEPARIN SOD (PORCINE) 5,000 UNIT/ML 1 ML VIAL SUBCUT SCH ×3 (06:29→21:55)
[2020-03-02] MEDS: INSULIN LISPRO 100 UNIT/ML 3 ML VIAL SUBCUT SCH ×3 (06:29→18:29)
[2020-03-02 07:12] LABS: ABSOLUTE LYMPHOCYTES (AUTO) 0.7 10^3/uL (0.5-4.7); ABSOLUTE MONOCYTES (AUTO) 0.7 10^3/uL (0.1-1.4); ABSOLUTE NEUT (AUTO) 8.5 10^3/uL (1.7-8.2); BASOPHILS % (AUTO) 0.2 % (0-2); HEMATOCRIT 33.7 % (37.9-51.0); HEMOGLOBIN 11.6 g/dL (13.5-17.0); LYMPHOCYTES % (AUTO) 6.9 % (13-45); MEAN CORPUSCULAR HEMOGLOBIN 31.8 pg (27.0-33.4); MEAN CORPUSCULAR HGB CONC 34.4 g/dL (32.0-36.0); MEAN CORPUSCULAR VOLUME 93 fl (80-97); PLATELET COUNT 134 10^3/uL (150-450); RED BLOOD COUNT 3.64 10^6/uL (4.35-5.55); RED CELL DISTRIBUTION WIDTH 12.9 % (11.5-14.0); SEGMENTED NEUTROPHILS % (AUTO) 85.9 % (42-78); TOTAL CELLS COUNTED % (AUTO) 100 %; WHITE BLOOD COUNT 9.9 10^3/uL (4.0-10.5)
[2020-03-02 07:29] LABS: ALBUMIN 3.4 g/dL (3.5-5.0); ALKALINE PHOSPHATASE 98 U/L (38-126); ANION GAP 5 (5-19); ASPARTATE AMINO TRANSFERASE 30 U/L (17-59); BILIRUBIN,DIRECT 0.2 mg/dL (0.0-0.4); BILIRUBIN,TOTAL 1.2 mg/dL (0.2-1.3); BLOOD UREA NITROGEN 18 mg/dL (7-20); CALCIUM 8.1 mg/dL (8.4-10.2); CARBON DIOXIDE 33 mmol/L (22-30); CHLORIDE 102 mmol/L (98-107); CHOLESTEROL 174.01 mg/dL (0-200); GLUCOSE 150 mg/dL (75-110); TOTAL PROTEIN 6.7 g/dL (6.3-8.2); TRIGLYCERIDES 148 mg/dL (<150)
[2020-03-02 07:40] LABS: DIRECT LDL 80 mg/dL (<100)
[2020-03-02] MEDS: MAGNESIUM SULFATE/D5W 1 GM/100 ML RTUPB IV SCH ×2 (08:21→09:46)
--- NOTE | 2020-03-02 08:29 | RADIOLOGY REPORT (SQ) ---
EXAM DESCRIPTION: CT ABD/PELVIS NO ORAL OR IV IMAGES COMPLETED DATE/TIME: 03/02/2020 1:33 am REASON FOR STUDY: acute pancreatitis COMPARISON: 10/15/2019, 09/11/2019, 09/01/2018 TECHNIQUE: CT scan of the abdomen and pelvis performed without intravenous or oral contrast. Images reviewed with lung, soft tissue, and bone windows. Reconstructed coronal and sagittal MPR images revi ewed. All images stored on PACS. All CT scanners at this facility use dose modulation, iterative reconstruction, and/or weight based d osing when appropriate to reduce radiation dose to as low as reasonably achievable (ALARA). [facility]: Dose Right [facility]: CareDose [facility]: Dose Right [facility]: Teradose 4D [facility]: [email or web address] RADIATION DOSE: CT Rad equipment meets quality standard of care and radiation dose reduction techniq ues were employed. CTDIvol: 4.2 mGy. DLP: 220 mGy-cm.mGy. LIMITATIONS: None. FINDINGS: LOWER CHEST: No significant findings. No nodules or infiltrates. NON-CONTRASTED LIVER, SPLEEN, ADRENALS: Evaluation limited by lack of IV contrast. No identified sign ificant masses. PANCREAS: Persistent versus recurrent inflammatory changes predominantly about the pancreatic head wi th presumably secondary inflammatory changes about the stomach antrum and duodenum. No focal fluid c ollection/abscess demonstrated. Few punctate calcifications are seen within the head of the pancreas at the site of a pancreatic pseudocyst demonstrated on August 2018 CT imaging. The pancreatic duct do es not appear to be dilated. No focal mass on this limited examination. GALLBLADDER: No identified stones by CT criteria. No inflammatory changes to suggest cholecystitis. RIGHT KIDNEY AND URETER: No suspicious masses. Assessment limited by lack of IV contrast. No signif icant calcifications. No hydronephrosis or hydroureter. LEFT KIDNEY AND URETER: No suspicious masses. Assessment limited by lack of IV contrast. No signifi cant calcifications. No hydronephrosis or hydroureter. AORTA AND RETROPERITONEUM: No aneurysm. No retroperitoneal masses or adenopathy. BOWEL AND PERITONEAL CAVITY: As above. The remaining bowel is unremarkable. APPENDIX: Normal. PELVIS, BLADDER, AND ABDOMINAL WALL:No abnormal masses. No free fluid. Bladder normal. BONES: Degenerative changes of the hips and spine. OTHER: No other significant finding. IMPRESSION: Findings consistent with chronic versus recurrent pancreatitis without focal fluid colle ction or mass demonstrated on this noncontrast enhanced examination. Underlying neoplasm is not excl uded. COMMENT: Quality ID # [id number]: Final reports with documentation of one or more dose reduction techniques (e.g., Automated exposure control, adjustment of the mA and/or kV according to patient size, use of iterative reconstruction technique) TECHNICAL DOCUMENTATION: JOB ID: [id number] 2010 [employer]- All Rights Reserved Reading location - IP/workstation name: [email or web address]
[2020-03-02] MEDS: LISINOPRIL 10 MG TABLET PO SCH (09:46)
[2020-03-02] MEDS: THIAMINE HCL 100 MG TABLET PO SCH (09:46)
[2020-03-02] MEDS: FOLIC ACID 1 MG TABLET PO SCH (09:46)
--- NOTE | 2020-03-02 20:41 | PDOC PROGRESS REPORT ---
Subjective Date:: 03/02/20 Subjective:: FELIX HEATH is a 44 year old male past medical history of EtOH abuse, recurre nt alcoholic pancreatitis, type 2 diabetes, hypertension, EtOH abuse presenting to ED complaining of acute onset abdominal pain starting the morning prior to admission. Patient has history of heavy alcohol abuse, drinks daily, stating that he probably overdid it for [place] night the following day started having severe epigastric abdominal pain, pain is explained as sharp, radiating to back, 10/10 on severity scale, no alleviating or exacerbating factors identified, associated with nausea, nonbloody nonbilious vomiting denies any chest pain, shortness of breath, fever, chills, constipation, diarrhea or any urinary symptoms. In ED was noted to have a lipase level of 2495 and hospital was consulted for admission. 03/02/20 Care assumed today. Patient was seen and examined at bedside. He reports that he is not in as much pain however still admits to some nausea. LAst drink was 2 days ago. He denied any withdrawal symptoms other than headache and nausea. Reason For Visit: ACUTE PANCREATITIS Physical Exam Vital Signs: Temp Pulse Resp BP Pulse Ox 99.7 F 73 16 122/71 100 03/02/20 20:18 03/02/20 20:18 03/02/20 20:18 03/02/20 20:18 03/02/20 20:18 Intake & Output 03/01/20 03/02/20 03/03/20 06:59 06:59 06:59 Intake Total 3365 2800 Output Total 100 900 Balance 3265 1900 Weight 75.2 kg General appearance: PRESENT: no acute distress, cooperative Head exam: PRESENT: atraumatic, normocephalic Eye exam: PRESENT: EOMI, PERRLA Mouth exam: PRESENT: moist Neck exam: PRESENT: full ROM Respiratory exam: PRESENT: clear to auscultation braxton, symmetrical, unlabored Cardiovascular exam: PRESENT: RRR, +S1, +S2 GI/Abdominal exam: PRESENT: normal bowel sounds, soft, tenderness - Epigastri area Extremities exam: PRESENT: full ROM Musculoskeletal exam: PRESENT: full ROM Neurological exam: PRESENT: alert, awake, oriented to person, oriented to place, oriented to time, oriented to situation Psychiatric exam: PRESENT: normal mood Skin exam: PRESENT: normal color Results Laboratory Results: 03/02/20 05:25 03/02/20 05:25 03/01/20 03/02/20 03/02/20 22:22 05:25 05:25 WBC 9.9 RBC 3.64 L Hgb 11.6 L Hct 33.7 L MCV 93 MCH 31.8 MCHC 34.4 RDW 12.9 Plt Count 134 L Seg Neutrophils % 85.9 H Sodium 139.7 Potassium 4.0 Chloride 102 Carbon Dioxide 33 H Anion Gap 5 BUN 18 Creatinine 0.62 Est GFR ( Amer) > 60 Glucose 150 H Calcium 8.1 L Magnesium 1.4 L Total Bilirubin 1.2 AST 30 Alkaline Phosphatase 98 Total Protein 6.7 Albumin 3.4 L Triglycerides 148 Cholesterol 174.01 LDL Cholesterol Direct 80 VLDL Cholesterol 30.0 HDL Cholesterol 85 Lipase 1290.1 H Urine Color YELLOW Urine Appearance CLEAR Urine pH 6.0 Ur Specific [place] 1.037 Urine Protein 100 H Urine Glucose (UA) >=500 H Urine Ketones 20 H Urine Blood NEGATIVE Urine Nitrite NEGATIVE Ur Leukocyte Esterase NEGATIVE Urine WBC (Auto) 3 Urine RBC (Auto) 0 Impressions: Abdomen/Pelvis CT 03/02/20 00:00 IMPRESSION: Findings consistent with chronic versus recurrent pancreatitis without focal fluid collection or mass demonstrated on this noncontrast enhanced examination. Underlying neoplasm is not excluded. Assessment and Plan - Diagnosis (1) Acute pancreatitis Qualifiers: Pancreatitis type: alcohol induced Acute pancreatitis complication: unspecified Qualified Code(s): K85.20 - Alcohol induced acute pancreatitis without necrosis or infection Is this a current diagnosis for this admission?: Yes Plan: -Has had previous episodes of pancreatitis yet continues to drink - CT abdomen showing recurrent pancreatitis -Lipase 1290 -Lipid panel normal -Continue IV fluids, morphine - (2) Alcohol withdrawal Qualifiers: Complication of substance-induced condition: with unspecified complication Qualified Code(s): F10.239 - Alcohol dependence with withdrawal, unspecified Is this a current diagnosis for this admission?: Yes Plan: -History of alcohol-related seizures -Last drink 2 days ago -On CIWA score and Ativan as needed for withdrawal symptoms (3) ETOH abuse Is this a current diagnosis for this admission?: Yes Plan: History of chronic daily EtOH abuse. Last alcohol intake 02/29/2020. Does not appear to be acutely withdrawing. Admit to telemetry, DT precautions, folic acid, thiamine, benzodiazepines. (4) Diabetes mellitus type 2 in nonobese Is this a current diagnosis for this admission?: Yes Plan: History of uncontrolled diabetes. Presenting with hyperglycemia. Diabetic diet, Accu-Chek, hypoglycemia protocol. Basal, prandial and correctional insulin. Diabetic education. (5) Tobacco abuse Is this a current diagnosis for this admission?: Yes Plan: Counseled on quitting. NicoDerm patch will be provided. - Plan Summary Summary: Patient coming in due to 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 CT abdomen findings consistent with chronic versus recurrent pancreatitis without focal fluid collection or mass. He is on IV fluids,morphine for pancreatitis. He is also at high risk for alcohol withdrawal hands as needed Ativan was ordered. Since of counseling for alcohol abuse was done. Diet was advanced to clear liquids and so far he is tolerating this. - Time Time Spent with patient: 25-34 minutes Medications reviewed and adjusted accordingly: Yes Anticipated Discharge Disposition: Home, Self Care Anticipated Discharge Timeframe: tbd
[2020-03-02] MEDS ORDERED: INSULIN GLARGINE,HUM.REC.ANLOG 1,000 UNIT/10 ML VIAL (PYX) SUBCUT ONE (21:51)
[2020-03-02] MEDS ORDERED: INSULIN GLARGINE,HUM.REC.ANLOG 1,000 UNIT/10 ML VIAL (PYX) SUBCUT PRN (21:53)
[2020-03-02] MEDS ORDERED: CEFTRIAXONE 1 GM/D5W RTU 1 GM/50 ML RTUPB IV SCH (22:00)
[2020-03-02] MEDS ORDERED: INSULIN GLARGINE,HUM.REC.ANLOG 1,000 UNIT/10 ML VIAL SUBCUT SCH (22:00)
[2020-03-03] MEDS: INSULIN LISPRO 100 UNIT/ML 3 ML VIAL SUBCUT SCH ×3 (00:02→12:13)
[2020-03-03] MEDS: NORMAL SALINE 1000 ML 1,000 ML IV PRN ×3 (01:52→12:25)
[2020-03-03] MEDS: HEPARIN SOD (PORCINE) 5,000 UNIT/ML 1 ML VIAL SUBCUT SCH ×2 (06:17→15:45)
[2020-03-03] MEDS: PANTOPRAZOLE SODIUM 40 MG TABLET.DR PO SCH (06:17)
[2020-03-03] MEDS: LISINOPRIL 10 MG TABLET PO SCH (09:47)
[2020-03-03] MEDS: THIAMINE HCL 100 MG TABLET PO SCH (09:47)
[2020-03-03] MEDS: FOLIC ACID 1 MG TABLET PO SCH (09:47)
[2020-03-03 16:45] VITALS: BP 141/94
--- NOTE | 2020-03-03 19:32 | PDOC DISCHARGE SUMMARY ---
Impression - Admit/DC Date/PCP Admission Date/Primary Care Provider: 03/01/20 21:16 CRESENCIO ALVA Discharge Date: 03/03/20 - Discharge Diagnosis (1) Abdominal pain Is this a current diagnosis for this admission?: Yes (2) Acute pancreatitis Is this a current diagnosis for this admission?: Yes (3) Dehydration Is this a current diagnosis for this admission?: Yes (4) Diabetes mellitus type 2 in nonobese Is this a current diagnosis for this admission?: Yes (5) ETOH abuse Is this a current diagnosis for this admission?: Yes (6) Tobacco abuse Is this a current diagnosis for this admission?: Yes (7) Vomiting Is this a current diagnosis for this admission?: Yes - Assessment Summary: 44 M who presented with acute 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 CT abdomen findings consistent with chronic versus recurrent pancreatitis without focal fluid collection or mass. He improved with IV fluids, IV morphine. He exhibited no evidence of alcohol withdrawal while inpatient. Diet was advanced and patient tolerated well. Pain was resolved by the time of discharge. - Additional Information Resuscitation Status: Full Code Discharge Diet: As Tolerated Discharge Activity: Activity As Tolerated Referrals: CRESENCIO ALVA MD [Primary Care Provider] - 03/12/20 10:45 am Home Medications: Lisinopril [Zestril] 10 mg PO DAILY 10/12/19 Omeprazole 20 mg PO BID 10/12/19 Spironolactone [Aldactone 25 mg Tablet] 25 mg PO DAILY 10/12/19 Ibuprofen [Motrin 800 mg Tablet] 800 mg PO Q8HP PRN 03/02/20 Methocarbamol [Robaxin 500 mg Tablet] 500 mg PO BIDP PRN 03/02/20 Prednisone 10 mg PO ASDIR 03/02/20 Tramadol HCl [Ultram 50 mg Tablet] 50 mg PO BIDP PRN 03/02/20 History of Present Illiness History of Present Illness: FELIX HEATH is a 44 year old male Physical Exam Vital Signs: Temp Pulse Resp BP Pulse Ox 99.1 F 69 16 141/94 H 99 03/03/20 16:16 03/03/20 16:16 03/03/20 16:16 03/03/20 16:14 03/03/20 16:16 Intake & Output 03/02/20 03/03/20 03/04/20 06:59 06:59 06:59 Intake Total 3365 5450 1537 Output Total 100 376 575 Balance 4375 8018 822 Weight 75.2 kg 82.2 kg Results Laboratory Results: WBC 9.9 10^3/uL (4.0-10.5) 03/02/20 05:25 RBC 3.64 10^6/uL (4.35-5.55) L 03/02/20 05:25 Hgb 11.6 g/dL (13.5-17.0) L 03/02/20 05:25 Hct 33.7 % (37.9-51.0) L 03/02/20 05:25 MCV 93 fl (80-97) 03/02/20 05:25 MCH 31.8 pg (27.0-33.4) 03/02/20 05:25 MCHC 34.4 g/dL (32.0-36.0) 03/02/20 05:25 RDW 12.9 % (11.5-14.0) 03/02/20 05:25 Plt Count 134 10^3/uL (150-450) L 03/02/20 05:25 Lymph % (Auto) 6.9 % (13-45) L 03/02/20 05:25 [place] % (Auto) 7.0 % (3-13) 03/02/20 05:25 Eos % (Auto) 0.0 % (0-6) 03/02/20 05:25 Baso % (Auto) 0.2 % (0-2) 03/02/20 05:25 Absolute Neuts (auto) 8.5 10^3/uL (1.7-8.2) H 03/02/20 05:25 Absolute Lymphs (auto) 0.7 10^3/uL (0.5-4.7) 03/02/20 05:25 Absolute Monos (auto) 0.7 10^3/uL (0.1-1.4) 03/02/20 05:25 Absolute Eos (auto) 0.0 10^3/uL (0.0-0.6) 03/02/20 05:25 Absolute Basos (auto) 0.0 10^3/uL (0.0-0.2) 03/02/20 05:25 Seg Neutrophils % 85.9 % (42-78) H 03/02/20 05:25 VBG pH 7.37 (7.30-7.42) 03/01/20 18:20 VBG pCO2 39.6 mmHg (35-63) 03/01/20 18:20 VBG HCO3 22.4 mmol/L (20-32) 03/01/20 18:20 VBG Base Excess -2.6 mmol/L 03/01/20 18:20 Sodium 139.7 mmol/L (137-145) 03/02/20 05:25 Potassium 4.0 mmol/L (3.6-5.0) 03/02/20 05:25 Chloride 102 mmol/L (98-107) 03/02/20 05:25 Carbon Dioxide 33 mmol/L (22-30) H 03/02/20 05:25 Anion Gap 5 (5-19) 03/02/20 05:25 BUN 18 mg/dL (7-20) 03/02/20 05:25 Creatinine 0.62 mg/dL (0.52-1.25) 03/02/20 05:25 Est GFR ( Amer) > 60 (>60) 03/02/20 05:25 Est GFR (MDRD) Non-Af > 60 (>60) 03/02/20 05:25 Glucose 150 mg/dL (75-110) H 03/02/20 05:25 POC Glucose 235 mg/dL (70-110) H 03/03/20 16:09 Hemoglobin A1c % 5.8 % (4.7-6.0) 03/02/20 05:25 Lactic Acid 0.6 mmol/L (0.7-2.1) L 03/03/20 05:50 Calcium 8.1 mg/dL (8.4-10.2) L 03/02/20 05:25 Magnesium 1.4 mg/dL (1.6-2.3) L 03/02/20 05:25 Total Bilirubin 1.2 mg/dL (0.2-1.3) 03/02/20 05:25 Direct Bilirubin 0.2 mg/dL (0.0-0.4) 03/02/20 05:25 Neonat Total Bilirubin Not Reportable 03/02/20 05:25 Neonat Direct Bilirubin Not Reportable 03/02/20 05:25 Neonat Indirect Bili Not Reportable 03/02/20 05:25 AST 30 U/L (17-59) 03/02/20 05:25 ALT 22 U/L (<50) 03/02/20 05:25 Alkaline Phosphatase 98 U/L (38-126) 03/02/20 05:25 Total Protein 6.7 g/dL (6.3-8.2) 03/02/20 05:25 Albumin 3.4 g/dL (3.5-5.0) L 03/02/20 05:25 Triglycerides 148 mg/dL (<150) 03/02/20 05:25 Cholesterol 174.01 mg/dL (0-200) 03/02/20 05:25 LDL Cholesterol Direct 80 mg/dL (<100) 03/02/20 05:25 VLDL Cholesterol 30.0 mg/dL (10-31) 03/02/20 05:25 HDL Cholesterol 85 mg/dL (>40) 03/02/20 05:25 Amylase 305 U/L (30-110) H 03/01/20 18:20 Lipase 878.1 U/L (23-300) H 03/03/20 05:50 Urine Color YELLOW 03/01/20 22:22 Urine Appearance CLEAR 03/01/20 22:22 Urine pH 6.0 (5.0-9.0) 03/01/20 22:22 Ur Specific [place] 1.037 03/01/20 22:22 Urine Protein 100 mg/dL (NEGATIVE) H 03/01/20 22:22 Urine Glucose (UA) >=500 mg/dL (NEGATIVE) H 03/01/20 22:22 Urine Ketones 20 mg/dL (NEGATIVE) H 03/01/20 22:22 Urine Blood NEGATIVE (NEGATIVE) 03/01/20 22:22 Urine Nitrite NEGATIVE (NEGATIVE) 03/01/20 22:22 Urine Bilirubin NEGATIVE (NEGATIVE) 03/01/20 22:22 Urine Urobilinogen NEGATIVE mg/dL (<2.0) 03/01/20 22:22 Ur Leukocyte Esterase NEGATIVE (NEGATIVE) 03/01/20 22:22 Urine WBC (Auto) 3 /HPF 03/01/20 22:22 Urine RBC (Auto) 0 /HPF 03/01/20 22:22 U Hyaline Cast (Auto) 9 /LPF 03/01/20 22:22 Urine Mucus (Auto) FEW /LPF 03/01/20 22:22 Urine Ascorbic Acid NEGATIVE (NEGATIVE) 03/01/20 22:22 Impressions: Abdomen/Pelvis CT 03/02/20 00:00 IMPRESSION: Findings consistent with chronic versus recurrent pancreatitis without focal fluid collection or mass demonstrated on this noncontrast enhanced examination. Underlying neoplasm is not excluded. Stroke Is this a Stroke Patient?: No Acute Heart Failure Is this a Heart Failure Patient?: No
== END 2020-03-03 16:50 | disposition home or self-care (01) | DRG 439 ==
LOC: ER 14:42 → EH 21:16 → 3S 22:45
PROVIDERS: ADMIT Internal Medicine; ATTEND Hospitalist
DX: K85.20 Alcohol induced acute pancreatitis without necrosis or infection (principal); F10.239 Alcohol dependence with withdrawal, unspecified; E86.0 Dehydration; I10 Essential (primary) hypertension; F17.210 Nicotine dependence, cigarettes, uncomplicated; E11.9 Type 2 diabetes mellitus without complications; Z79.899 Other long term (current) drug therapy; Z83.3 Family history of diabetes mellitus; Z79.4 Long term (current) use of insulin
CPT/HCPCS: 36415; 74176; 80053; 80061; 81001; 82150; 82803; 82962; 83036; 83605; 83690; 83735; 85025; 87040; 87086; 96361; 96372; 96374; 99285; J0696; J1644; J1815; J2060; J2270; J2405; J2550; J3475; J3490; J7030